=== PATIENT | female | born 1965 | race Caucasian/White ===

== ENCOUNTER → 2017-02-12 | Outpatient (CLI) | payer OTHER ==
--- NOTE | 2017-02-12 13:33 | MAMMOGRAPHY REPORT ---
BILATERAL DIGITAL SCREENING MAMMOGRAM TOMOSYNTHESIS WITH CAD: 02/12/2017 TECHNIQUE: Breast tomosynthesis in addition to standard 2D mammography was performed. Current study was also evaluated with a Computer Aided Detection (CAD) system. COMPARISON: Comparison is made to exams dated: 01/27/2016 mammogram, 04/10/2014 mammogram, 09/05/2010 mammogram - [facility], 08/03/2008, and 01/09/2013 ultrasound - [facility]. BREAST COMPOSITION: The tissue of both breasts is almost entirely fatty. FINDINGS: No suspicious masses, calcifications, or areas of architectural distortion are noted in e ither breast. There has been no significant interval change compared to prior exams. There are nume yanira round circumscribed fat density masses seen within the right medial breast anteriorly, consiste nt with benign oil cysts from fat necrosis. IMPRESSION: ACR BI-RADS CATEGORY 2: BENIGN There is no mammographic evidence of malignancy. A 1 year screening mammogram is recommended. The p atient will receive written notification of the results. Approximately 10% of breast cancers are not detected with mammography. A negative mammographic repor t should not delay biopsy if a clinically suggestive mass is present. Janeth Castle M.D. ah/:02/12/2017 13:16:49 [employer]: Vera ROMO)(Rayna), [facility] letter sent: Normal 1/2 BI-RADS Code: ACR BI-RADS Category 2: Benign
== END | disposition home or self-care (01) ==
LOC: C.MAMM 10:45
PROVIDERS: ATTEND Physician Assistant
DX: Z12.31 Encounter for screening mammogram for malignant neoplasm of breast (principal)

== ENCOUNTER 2024-04-17 06:00 | Observation (INO) ==
--- OUTSIDE RECORDS SUMMARY | 2024-04-17 06:05 | External Medical Summary | Summary of Care ---
Author Name Unknown Organization [facility] Address [address] [place] [address] Phone [phone] Care Team Providers Care Control Systems Drafting Officer Name Role Phone Bobby Cannon MD Primary Care Provider [phone] Encounter Details Date Type Department Care Team (Late st Contact Info) Description 03/21/2024 Orders Only [facility] [address] [place] [address] Marisol Moreno PA-C [address] [place] [address] Allergies Active Allergy Reactions Criticality Noted Date Comments Penicillins 01/23/1999 hives Sulfa Antibiotics Unknown 01/23/1999 documented as of this encounter (statuses as of 03/21/2024) Medications No known medicationsdocumented as of this encounter (statuses as of 03/21/2024) Active Problems Problem Noted Date Diagnosed Date Wrist tendonitis 08/20/2021 Flexor carpi radialis tenosynovitis 08/20/2021 Body mass index (BMI) of 40.0 to 44.9 in adult 0 01/04/2018 Overview: Per Obesity protocol #1 Panic disorder 03/02/2007 Major depressive disorder, recurrent episode, mo derate 03/02/2007 Urinary frequency 03/02/2007 FM [id number] DIS NEC 11/24/2000 History of tobacco use Family hx-breast malignancy documented as of this encounter (statuses as of 03/21/2024) Resolved Problems Problem Noted Date Diagnosed Date Resolved Date Malaise and fatigue 03/02/2007 05/01/20 19 MEDIAL EPICONDYLITIS, LEFT 03/02/2007 0 05/01/2019 ADVANCE DIRECTIVE INFORMATION 01/15/2006 05/01/2019 Overview: No, Advance Directive brochure given to patient. documented as of this encounter (statuses as of 03/21/2024) Immunizations Name Administration Dates Next Due COVID-19 mRNA, LNP-s, No Pre serve, 2-Dose Series (Pfizer) 01/16/2021,12/26/2020 PPD 02/08/2017,01/27/2017 Seasonal Influenza, PF, 6 M & above, IM , (FluLaval or Fluzone) 08/23/2021,10/06/2019,11/30/2017 Seasonal Influenza, Split, I IV3, With Preserve, Inj 09/27/2012,09/11/2008,09/16/2007 TDAP (age 10 and older)(Boostrix) 10/19/2015 documented as of this encounter Social History Tobacco Use Types Packs/Day Years Used Date Smoking Tobacco: Former Cigarettes 1.5 10 0 01/13/2002 - 01/13/2012 Smokeless Tobacco: Never Alcohol Use Standard Drinks/Week Comments Yes 0 (1 standard drink = 0.6 oz pur e alcohol) 8 drinks daily Sex and Gender Information Value Date Recorded Sex Assigned at Female 01/01/2020 12:36 PM EST Gender Identity Female 01/01/2020 12:36 PM EST Sexual Orientation Straight 01/01/2020 12 :36 PM EST Job Start Date Occupation Industry Not on file Not on file Not on file documented as of this encounter Plan of Treatment Scheduled Procedures Name Priority Associated Diagnoses Date/Ti me COLONOSCOPY FLEXIBLE PROXIMA L DIAGNOSTIC Recall Positive colorectal cancer screening using Cologuard test Health Maintenance Due Date Last Done Comments HIV Screening 1981 Hepatitis C Screening 1984 Hepatitis B (1 of 3 - 19+ 3-dose series) 1985 HPV/Co-Test 1996 Fecal Occult Blood Test 2011 Sigmoidoscopy 2011 Zoster Vaccines (1 of 2) 2016 Lipid Panel 02/08/2022 02/08/2017, 06/22, 06/24/2007 Diabetes Screening 01/01/2023 01/01/2020, 0 07/03/2009, 06/24/2007, Additional history exists COVID-19 Vaccine ( season) 2023 01/16/2021, 12/26/2020 Mammogram 01/01/2024 03/20/2024, 12/23, 12/30/2021, Additional history exists Influenza Vaccine (FLU shot) (Season Ended) 2024 08/23/2021, 10/06/2019, 11/30/2017, Additional history exists Cologuard 06/30/2025 06/30/2022, 12/2021, 06/23/2022, Additional history exists Cervical Cancer Screening 07/10/2025 Pap Smear 07/10/2025 07/10/2022, 04/22, 05/01/2019, Additional history exists DTaP,Tdap,and Td Vaccines (7 - Td or Tdap) 10/19/2025 10/19/2015, 11/24/2000, 05/01/1971, Additional history exists Colonoscopy 11/09/2027 11/09/2022, 11/09/2022 Colorectal Cancer Screening 11/09/2027 RETIRED - COLONOSCOPY-EVERY 5 YRS AGES 18-100 Discontinued 11/09/2022, 11/09/2022 GARDASIL-HPV IMMUNIZATION SERIES Aged Out No longer eligible based on patient's age to complete this topic MENINGOCOCCAL (MENACTRA/MENVEO) Aged Out No longer eligible based on patient's age to complete this topic Pneumococcal Vaccine: Pediatrics (0 to 5 Years) and At-Risk Patients (6 to 64 Years) Aged Out No longer eligible based on patient's age to complete this topic documented as of this encounter Medical Devices Not on filedocumented as of this encounter Procedures Procedure Name Priority Date/Time Associated Diagnosis Comments MAMMOGRAM SCREENING BILATERAL Routine 03/20/2024 documented in this encounter Results * MAMMOGRAM SCREENING BILATERAL (03/20/2024) Anatomical Region Laterality Modality Breast Bilateral Other 03/20/2024 Marisol Moreno PA-C RAD MAMMOGRAPHY documented in this encounter Care Teams Control Systems Drafting Officer Relationship Specialty Start Date End Date Bobby Cannon MD [address] [facility] [place] [id number] PCP - General Family Medicine 10/06/19 documented as of this encounter
[2024-04-17 06:32] LABS: Basophils # (auto) 0.05 K/uL (0.00-0.20); Basophils % (auto) 0.5 %; Eosinophils # (auto) 0.23 K/uL (0.00-0.50); Eosinophils % (auto) 2.3 %; Hematocrit (blood only) 46.7 % (37.0-47.0); Hemoglobin 15.7 g/dl (12.0-16.0); Immature Granulocytes # (auto) 0.05 K/uL (0.01-0.20); Immature Granulocytes % (auto) 0.5 %; Lymphocytes # (auto) 1.57 K/uL (1.20-3.40); Lymphocytes % (auto) 15.9 %; Mean Corpuscular Hemoglobin 29.7 pg (25.0-34.0); Mean Corpuscular Hgb Conc 33.6 g/dL (32.0-36.0); Mean Corpuscular Volume 88.4 fL (80.0-100.0); Mean Platelet Volume 11.2 fL (9.4-12.4); Monocytes # (auto) 0.72 K/uL (0.11-0.59); Monocytes % (auto) 7.3 %; Neutrophils # (auto) 7.23 K/uL (1.40-6.50); Neutrophils % (auto) 73.5 %; Platelet Count 287 K/uL (130-400); RDW Standard Deviation 42.4 fL (36.4-46.3); Red Blood Count 5.28 M/uL (4.20-5.40); White Blood Count 9.85 K/ul (4.8-10.8)
--- NOTE | 2024-04-17 06:59 | Electrocardiogram Report ---
Test Reason : Blood Pressure : / mmHG Vent. Rate : 111 BPM Atrial Rate : 111 BPM P-R Int : 142 ms QRS Dur : 072 ms QT Int : 350 ms P-R-T Axes : 065 064 044 degrees QTc Int : 476 ms Sinus tachycardia Otherwise normal ECG When compared with ECG of 06-SEP-2019 09:38, No significant change was found Confirmed by Rikki Maldonado ([id number]) on 04/17/2024 6:59:26 AM Referred By: Confirmed By:Fracisco Maldonado
[2024-04-17 07:04] LABS: Albumin Globulin Ratio 1.4 (0.9-2); Albumin Level 4.3 gm/dl (3.4-5.0); BUN Creatinine Ratio 13.3 (10-20); Bilirubin,Total 2.8 mg/dl (0.2-1.0); Calcium 9.1 mg/dl (8.6-10.3); Creatinine Clr Calc Pharmacy 99.9 ml/min; Est GFR (African American) 101.8 ml/min; Est GFR (Non-African American) 87.9 ml/min; Globulin 3.1 gm/dl (2.5-4.0); Potassium 4.1 mmol/L (3.5-5.1); Total Protein 7.4 gm/dl (6.0-8.3)
[2024-04-17 07:10] LABS: Troponin I High Sensitivity 4.7 pg/ml (0-14)
[2024-04-17 07:26] LABS: D Dimer 450 ug/L FEU (0-500); Partial Thromboplastin Ratio 0.9; Partial Thromboplastin Time 24 Seconds (21-31); Prothrombin Time 10.8 Seconds (9.0-12.0)
[2024-04-17] MEDS: OPTIRAY 320 100ml IV ONE (07:33)
--- NOTE | 2024-04-17 07:52 | Emergency Department Note ---
Impression & Plan Acute cholecystitis, Elevated LFTs ED Provider Note NAME: HERON GOOD AGE: 59 SEX: F : 1965 ARRIVES VIA: Walk-In INFORMANT: Patient, ED PROVIDER(S): Osman Faria MD CHIEF COMPLAINT: Chest pain HPI: This is a 59-year-old presenting for sharp chest pain. Patient points to her epigastrium and pointing to pain. States this began around 4 PM yesterday. She notes that since this time the pain is only worsened. She notes pain with inspiration, nausea without vomiting. She notes she went to the bathroom which did not improve her symptoms. She otherwise notes pain is very severe at this time and she having difficulty due to this. Never happened before. Still has all of her abdominal organs. ROS: See above HPI for pertinent positives & negatives. A total of 10 systems reviewed and were otherwise negative. PHYSICAL EXAMINATION: General: resting comfortably in no acute distress Head: Normocephalic and atraumatic Eyes: Normal inspection, extraocular muscles intact Ear, nose, throat: Normal external exam Neck: Normal range of motion Respiratory: lungs clear to auscultation bilaterally Cardiovascular: Regular rate/rhythm, no murmur GI: Epigastric and right upper quadrant tenderness, positive Cabrera, involuntary guarding, no rebound Extremities: nontender, moves all extremities Neuro: The patient awake and alert, appropriately conversive, no focal deficits, symmetric faces Skin: Warm, dry, and intact MEDICAL DECISION MAKING: This is a 59-year-old female presenting for chest pain. Patient's pain is actually more epigastrium/right upper quadrant. Concern for pancreatitis, cholecystitis, SBO, diverticulitis, ACS, PE. -Blood work was ordered to help rule out a different etiology -Blood work reveals a transaminitis with slight bilirubin elevation. In light of patient's tenderness on physical exam, concern for cholecystitis at this time she has no elevated lipase making pancreatitis lower concern at this time. -Otherwise patient's troponin is negative as well as D-dimer making ACS and PE unlikely in the setting of patient's current EKG as below -CT reveals cholelithiasis with mild gallbladder distention. At this time cannot rule out acute cholecystitis clinically. Discussed with Dr. Saenz, general surgery who recommends inpatient admission for MRCP based on criteria. -After discussion with Dr. Olivares, hospitalist, he wishes to have MRCP performed in the emergency department prior to admission. If MRCP is positive, would recommend transfer. -MRCP does not reveal CBD dilation or stone. Patient now stable for admission to hospitalist service. Differential diagnosis: See above, ER treatment provided: See below Diagnostics interpreted by me: ECG: ECG independently interpreted by me with sinus tachycardia, rate of 111, normal axis, normal TX, normal QRS, normal QTc, no ST segment elevations consistent with STEMI criteria Cardiac Monitoring: An order was placed for continuous cardiac monitoring. The monitor shows a rate of 102 with sinus rhythm. Laboratory studies: As stated above and show below. Imaging studies: See below. Past Med/Surg History Problem List (Updated 04/17/24 @ 14:59 by Osman Faria MD) Acute cholecystitis (Acute) Elevated LFTs (Acute) Social History Smoking Status: Former smoker Second Hand Exposure: No; Do You Dip or Chew Tobacco: No; Tobacco Cessation Education Requested by Patient: No Hx Alcohol Use: Yes Alcohol type: beer Hx Substance Use: No Preferred Language: Polish Qa Lead Required: No Beliefs That Will Affect Care: None Current Living Situation: Family Other Information That Helps Us Care for You: No Feels Safe at Home: Yes Safety Concerns: Feels Safe At This Time Assistive Devices: Glasses Allergies Allergies Allergy/AdvReac Type Severity Reaction Status Date / Time Penicillins Allergy Unknown Unverified 12/27/09 04:41 Sulfa (Sulfonamide Allergy Unknown Unverified 12/27/09 04:41 Antibiotics) sulfamethoxazole Allergy Unknown Unverified 12/27/09 04:41 trimethoprim Allergy Unknown Unverified 12/27/09 04:41 PCN, BACTRIM Allergy Unknown Uncoded 01/15/05 07:37 Home Meds Home Medications Medication Instructions Recorded Confirmed No Known Home Medications 04/17/24 04/17/24 Results & Data (ED) Vital Signs Vital Signs - 24 hr 04/17/24 06:04 04/17/24 06:09 04/17/24 06:12 Temperature 36.6 C Temperature Source Oral Pulse Rate 114 H 106 H Pulse Rate [Left Finger] Pulse Rhythm Regular Pulse Rhythm [Left Finger] Pulse Strength [Left Finger] Respiratory Rate 20 16 Respiratory Effort / Characteristics Respiratory Depth Respiratory Pattern Blood Pressure [Right Arm] 185/105 H Blood Pressure Mean [Right Arm] 131 Blood Pressure Position [Right Arm] Pulse Oximetry 95 96 Oxygen Delivery Method Room Air Room Air Sepsis Recent Fever Within 48 Hours No Sepsis New/Unexplained Change in Mental Status No Sepsis Action Taken by Nursing No Action Required 04/17/24 06:34 04/17/24 08:03 04/17/24 09:00 Temperature Temperature Source Pulse Rate 100 H Pulse Rate [Left Finger] 85 79 Pulse Rhythm Pulse Rhythm [Left Finger] Regular Pulse Strength [Left Finger] Normal Respiratory Rate 24 20 Respiratory Effort / Characteristics Non-Labored Spontaneous Respiratory Depth Normal Respiratory Pattern Regular Blood Pressure [Right Arm] 191/111 H 167/67 H Blood Pressure Mean [Right Arm] 137 100 Blood Pressure Position [Right Arm] Sitting Pulse Oximetry 96 98 Oxygen Delivery Method Sepsis Recent Fever Within 48 Hours Sepsis New/Unexplained Change in Mental Status Sepsis Action Taken by Nursing 04/17/24 10:20 Temperature Temperature Source Pulse Rate Pulse Rate [Left Finger] 77 Pulse Rhythm Pulse Rhythm [Left Finger] Pulse Strength [Left Finger] Respiratory Rate 18 Respiratory Effort / Characteristics Respiratory Depth Respiratory Pattern Blood Pressure [Right Arm] 154/85 H Blood Pressure Mean [Right Arm] 108 Blood Pressure Position [Right Arm] Pulse Oximetry 98 Oxygen Delivery Method Sepsis Recent Fever Within 48 Hours Sepsis New/Unexplained Change in Mental Status Sepsis Action Taken by Nursing Laboratory Data 04/17/24 06:13 04/17/24 06:13 Lab Results 04/17/24 04/17/24 Range/Units 06:13 07:41 WBC 9.85 (4.8-10.8) K/ul RBC 5.28 (4.20-5.40) M/uL Hgb 15.7 (12.0-16.0) g/dl Hct 46.7 (37.0-47.0) % MCV 88.4 (80.0-100.0) fL MCH 29.7 (25.0-34.0) pg MCHC 33.6 (32.0-36.0) g/dL RDW Std Deviation 42.4 (36.4-46.3) fL RDW Coeff of Melva 13.0 (11.5-14.5) % Plt Count 287 (130-400) K/uL MPV 11.2 (9.4-12.4) fL Immature Gran % (Auto) 0.5 % Neut % (Auto) 73.5 % Lymph % (Auto) 15.9 % Swift % (Auto) 7.3 % Eos % (Auto) 2.3 % Baso % (Auto) 0.5 % Neut # (Auto) 7.23 H (1.40-6.50) K/uL Lymph # (Auto) 1.57 (1.20-3.40) K/uL Swift # (Auto) 0.72 H (0.11-0.59) K/uL Eos # (Auto) 0.23 (0.00-0.50) K/uL Baso # (Auto) 0.05 (0.00-0.20) K/uL Immature Gran # (Auto) 0.05 (0.01-0.20) K/uL PT 10.8 (9.0-12.0) Seconds INR 1.0 (0.9-1.1) APTT 24 (21-31) Seconds PTT Ratio 0.9 D-Dimer 450 (0-500) ug/L FEU Sodium 140 (136-145) mmol/L Potassium 4.1 (3.5-5.1) mmol/L Chloride 106 (98-107) mmol/L Carbon Dioxide 24 (21-32) mmol/L Anion Gap 10 (3-11) BUN 10 (6-23) mg/dl Creatinine 0.75 (0.6-1.2) mg/dl Est Cr Clr Drug Dosing 99.9 ml/min Est GFR ( Amer) 101.8 ml/min Est GFR (Non-Af Amer) 87.9 ml/min BUN/Creatinine Ratio 13.3 (10-20) Glucose 147 H (70-99(Fasting)) mg/dl Calcium 9.1 (8.6-10.3) mg/dl Total Bilirubin 2.8 H (0.2-1.0) mg/dl AST 406 H (13-39) U/L ALT 197 H (7-52) U/L Alkaline Phosphatase 148 H (34-104) U/L Troponin I High Sens 4.7 (0-14) pg/ml Total Protein 7.4 (6.0-8.3) gm/dl Albumin 4.3 (3.4-5.0) gm/dl Globulin 3.1 (2.5-4.0) gm/dl Albumin/Globulin Ratio 1.4 (0.9-2) Lipase 30 (11-82) U/L Urine Color Dark Yellow Urine Appearance Clear (Clear) Urine pH 7.5 (4.5-7.5) Ur Specific [place] 1.023 (1.000-1.030) Urine Protein Trace H (Negative) Urine Glucose (UA) Negative (Negative) Urine Ketones Negative (Negative) Urine Blood Negative (Negative) Urine Nitrite Negative (Negative) Urine Bilirubin Negative (Negative) Urine Urobilinogen Negative (Negative) Ur Leukocyte Esterase Negative (Negative) Urine WBC (Auto) 0-5 (0-5) /hpf Urine RBC (Auto) 0-2 (0-2) /hpf U Hyaline Cast (Auto) 0-2 (0-2) /lpf U Epithel Cells (Auto) 0-2 (0-2) /hpf Urine Bacteria (Auto) None Seen (None Seen) Administered Medications Lactated Ringer's (Lr) 1,000 mls @ 80 mls/hr IV .[id number] JUANA Stop: 05/17/24 13:17 Last Admin: 04/17/24 14:01 Dose: 80 mls/hr Documented By: [facility] Discontinued Medications Ceftriaxone Sodium (Rocephin) 2,000 mg in 50 mls @ 100 mls/hr IV Q24H [facility] Stop: 04/19/24 07:59 Last Infusion: 04/17/24 08:33 Dose: Infused Documented By: Admin: 04/17/24 08:03 Dose: 100 mls/hr Documented By: GURWINDER Metronidazole (Flagyl) 500 mg in 100 mls @ 100 mls/hr IV NOW STA; Protocol Stop: 04/17/24 08:48 Last Infusion: 04/17/24 09:28 Dose: Infused Documented By: Admin: 04/17/24 08:28 Dose: 100 mls/hr Documented By: GURWINDER Sodium Chloride (Nss) 1,000 mls @ 999 mls/hr IV .Q1H1M ONE Stop: 04/17/24 09:03 Last Infusion: 04/17/24 09:30 Dose: Infused Documented By: Admin: 04/17/24 08:29 Dose: 999 mls/hr Documented By: GURWINDER Ioversol (Optiray 320 100ml) 92 ml IV ONCE ONE Stop: 04/17/24 07:34 Last Admin: 04/17/24 07:33 Dose: 92 ml Documented By: JACLYN Ketorolac Tromethamine (Ketorolac Tromethamine 15 Mg/Ml Vial) 15 mg IV NOW ONE Stop: 04/17/24 07:48 Last Admin: 04/17/24 08:03 Dose: 15 mg Documented By: GURWINDER Lorazepam (Lorazepam 1 Mg Tab) 1 mg PO NOW STA Stop: 04/17/24 08:56 Last Admin: 04/17/24 09:53 Dose: Not Given Documented By: GURWINDER Lorazepam (Lorazepam 1 Mg/1 Ml Syr Ed Inj Use) 0.5 mg IV ONE STA Stop: 04/17/24 08:57 Last Admin: 04/17/24 10:08 Dose: 0.5 mg Documented By: GURWINDER Imaging Data Radiologist's Impression: Chest X-Ray 04/17/24 06:04 XR chest 1V portable CLINICAL HISTORY: Chest pain, nonspecific COMPARISON STUDY: No previous studies for comparison. FINDINGS: Lung volumes are normal. Lungs are clear. There is no pneumothorax or pleural effusion. Cardiac size is normal. Mediastinal contours are normal. There is no evidence for pulmonary edema. IMPRESSION: No acute cardiopulmonary findings. ACT 112: Negative or not required by law. Electronically signed by: Zak Barfield M.D. 04/17/2024 7:49 AM Abdomen/Pelvis CT 04/17/24 07:19 CT OF THE ABDOMEN AND PELVIS WITH CONTRAST CLINICAL HISTORY: RUQ, epigastric pain, ?enmanuel COMPARISON STUDY: None. TECHNIQUE: Following IV administration of 92 mL of Optiray, axial images of the abdomen and pelvis were obtained from the lung bases to the proximal femurs. Images were reviewed in the axial, sagittal, and coronal planes. IV contrast was administered without complication. Automated exposure control was utilized for the study. A dose lowering technique was utilized adhering to the principles of ALARA. CT DOSE: 1366.34 mGy.cm FINDINGS: Lung bases are unremarkable. No pneumatosis, free air or portal venous gas is present. There is hepatic steatosis. There are no hepatic lesions. There is no biliary or pancreatic ductal dilatation. A gallstone within the gallbladder is present. The gallbladder is mildly distended. There is mild gallbladder wall thickening. Trace stranding within the ponce hepatis is present. Spleen, adrenal glands, kidneys and pancreas are unremarkable. There is no hydronephrosis. The appendix is normal. Caliber and wall thickness of small and large bowel are normal. There is sigmoid diverticulosis without evidence for acute diverticulitis. Major vasculature is patent. IMPRESSION: 1. Cholelithiasis with mild gallbladder distention, gallbladder wall thickening and trace stranding within the ponce hepatis. Acute cholecystitis cannot be excluded. 2. Normal appendix. No bowel obstruction. No bowel wall thickening. 3. Sigmoid diverticulosis without evidence for acute diverticulitis. 4. Hepatic steatosis. ACT 112: Negative or not required by law. Electronically signed by: Zak Barfield M.D. 04/17/2024 8:00 AM Cholangiopancreatography MRI 04/17/24 08:28 MRCP CLINICAL HISTORY: Abdominal pain and nausea. TECHNIQUE: Utilizing a 1.5 Leonela magnet and dedicated coil, multiplanar, multiecho imaging of the upper abdomen was performed utilizing heavily T2 weighted pulsing sequences without IV contrast. COMPARISON STUDY: CT of the abdomen and pelvis performed earlier today. FINDINGS: No intra or extrahepatic biliary ductal dilatation is present. The common bile duct measures 5 m in caliber. No common bile duct calculi are identified. No hepatic lesions are identified on unenhanced exam. 2.1 cm gallstone within the gallbladder is present. There is mild gallbladder wall thickening. Slight thickening of the gallbladder fundus with small T2 hyperintense foci may reflect adenomyomatosis. There is no pancreatic ductal dilatation. Spleen, adrenal glands, kidneys and pancreas are unremarkable on unenhanced exam. Caliber and wall thickness of visualized small and large bowel are normal. There are no fluid collections within the abdomen. IMPRESSION: 1. No biliary ductal dilatation. No common bile duct calculi identified. 2. Cholelithiasis with mild gallbladder wall thickening. The findings could reflect chronic or acute cholecystitis. Nuclear medicine hepatobiliary scan could be obtained as indicated. ACT 112: Negative or not required by law. Electronically signed by: Zak Barfield M.D. 04/17/2024 11:08 AM Discharge Plan Visit Data Chief Complaint: Chest Pain Stated Complaint: CHEST PAIN, PAIN ACROSS BACK ED Provider: Osman Faria Discharge Problem: Acute cholecystitis, Elevated LFTs Patient Disposition: Admitted As Inpatient Discharge Instructions Interventions: ED Discharge Assessment Last Done: 04/17/24 13:00
--- NOTE | 2024-04-17 08:02 | CT Scan Report ---
CT OF THE ABDOMEN AND PELVIS WITH CONTRAST CLINICAL HISTORY: RUQ, epigastric pain, ?enmanuel COMPARISON STUDY: None. TECHNIQUE: Following IV administration of 92 mL of Optiray, axial images of the abdomen and pelvis we re obtained from the lung bases to the proximal femurs. Images were reviewed in the axial, sagittal, and coronal planes. IV contrast was administered without complication. Automated exposure control wa s utilized for the study. A dose lowering technique was utilized adhering to the principles of ALARA . CT DOSE: 1366.34 mGy.cm FINDINGS: Lung bases are unremarkable. No pneumatosis, free air or portal venous gas is present. Ther e is hepatic steatosis. There are no hepatic lesions. There is no biliary or pancreatic ductal dilata tion. A gallstone within the gallbladder is present. The gallbladder is mildly distended. There is mi ld gallbladder wall thickening. Trace stranding within the ponce hepatis is present. Spleen, adrenal glands, kidneys and pancreas are unremarkable. There is no hydronephrosis. The appendix is normal. Ca liber and wall thickness of small and large bowel are normal. There is sigmoid diverticulosis without evidence for acute diverticulitis. Major vasculature is patent. IMPRESSION: 1. Cholelithiasis with mild gallbladder distention, gallbladder wall thickening and trace stranding w ithin the ponce hepatis. Acute cholecystitis cannot be excluded. 2. Normal appendix. No bowel obstruction. No bowel wall thickening. 3. Sigmoid diverticulosis without evidence for acute diverticulitis. 4. Hepatic steatosis. ACT 112: Negative or not required by law. Electronically signed by: Zak Barfield M.D. 04/17/2024 8:00 AM
[2024-04-17 08:03] LABS: Appearance Urine Clear (Clear); Bacteria Urine Automated None Seen (None Seen); Bilirubin Urine Negative (Negative); Blood Urine Negative (Negative); Cast Urine Automated 0-2 /lpf (0-2); Color Urine Dark Yellow; Epithelial Cell Urine Auto 0-2 /hpf (0-2); Glucose Urine UA Negative (Negative); Ketones Urine Negative (Negative); Leukocyte Esterase Urine Negative (Negative); Nitrite Urine Negative (Negative); Protein Urine Trace (Negative); RBC Urine Automated 0-2 /hpf (0-2); Specific Gravity Urine 1.023 (1.000-1.030); Urobilinogen Urine Negative (Negative); WBC Urine Automated 0-5 /hpf (0-5); pH Urine 7.5 (4.5-7.5)
[2024-04-17] MEDS: cefTRIAXone SODIUM 2,000 MG/50 ML BAG IV SCH (08:03)
[2024-04-17] MEDS: KETOROLAC TROMETHAMINE 15 MG/ML VIAL IV ONE (08:03)
[2024-04-17] MEDS: metroNIDAZOLE 500 MG/100 ML BAG IV STA (08:28)
[2024-04-17] MEDS: SODIUM CHLORIDE 0.9% 1,000 ML IV ONE (08:29)
--- NOTE | 2024-04-17 08:55 | Surgery Consultation ---
Date of Consultation April 17, 2024 Assessment & Plan (1) Elevated LFTs: Patient is a pleasant 59 yo female with c/o epigastric pain that started yesterday around 4-5pm and got progressively worse around 0500 this AM which prompted to her go to the ER. She reports mild nausea while brushing her teeth, no vomiting, had similar pain a few years ago that subsided and she did seek treatment. On exam she is NAD, abdomen soft TTP RUQ, elevated BP otherwise VSS. CT scan reading Cholelithiasis/gallbladder distention, gallbladder wall thickening and trace stranding within the ponce hepatis, WBC wnl but her T. bili is 2.8, AST 406, ALT 197, Alk. phos. 148. Ordered a MRCP to r/o CBD obstruction given elevation in LFTs. Keep NPO , admit to medicine, if MRCP shows dilation or obstruction in question patient will transferred to a facility that has ERCP available. (2) Acute cholecystitis: Supervising Physician Co-Signing Physician Notes cholelithiasis w/ cholecystitis, suspicion of choledocholithiasis. MRCP negative, though still suspicious. admitted to medicine can have clears, npo after midnight repeat lfts, if increased may still need ercp vs cholangiogram tentatively plan for robotic assisted laparoscopic cholecystectomy with possible cholangiogram tomorrow in OR risks discussed to include but not limited to bleeding, infection, retained stone, bile leak, open surgery, damage to surrounding structures including bile duct, need for future or more extensive surgery, failure to treat symptoms, and risks of anesthesia. History of Present Illness Reason for Consultation: acute cholecystitis , elevated LFT Requesting Physician: Dr. Faria History of Present Illness Patient is a pleasant 59 yo female with no SPMH, that presented to the [facility] ER with c/o epigastric pain that started yesterday around 4-5pm and got progressively worse around 0500 this AM which prompted to her go to the ER. She reports mild nausea while brushing her teeth, no vomiting, had similar pain a few years ago that subsided and she did seek treatment. She denies prior ab dominal surgery and reports no medication. Patient does state she has been told prior that her blood pressure was elevated during routine yearly physicals, but reports it has not been elevated at her PCP appointments. Allergies Allergy/AdvReac Type Severity Reaction Status Date / Time Penicillins Allergy Unknown Unverified 12/27/09 04:41 Sulfa (Sulfonamide Allergy Unknown Unverified 12/27/09 04:41 Antibiotics) sulfamethoxazole Allergy Unknown Unverified 12/27/09 04:41 trimethoprim Allergy Unknown Unverified 12/27/09 04:41 PCN, BACTRIM Allergy Unknown Uncoded 01/15/05 07:37 Home Medications Medication Instructions Recorded Confirmed Type No Known Home Medications 04/17/24 04/17/24 History Patient History Social History Smoking Status: Never smoker Preferred Language: Setswana Feels Safe at Home: Yes Review of Systems Constitutional: no fever and no chills Respiratory: no dyspnea Gastrointestinal: + abdominal pain, + heartburn and + naus ea; no vomiting Musculoskeletal: no muscle weakness Physical Exam Constitutional: + obese, cooperative and comfortable; no acute distress Respiratory: normal respiratory effort and able to speak in complete sen tences; no respiratory distress Cardiovascular: Rate/Rhythm: regular rate Gastrointestinal (Abdomen): Percussion/Palpation: + abdomen tender (RUQ ) and abdomen soft Results & Data Vital Signs (Past 12 Hours) Vital Signs Temp Pulse Pulse Resp BP Pulse Ox O2 Del Method 04/17/24 08:03 85 24 191/111 H 96 04/17/24 06:34 100 H 04/17/24 06:12 106 H 16 96 Room Air 04/17/24 06:09 185/105 H 04/17/24 06:04 97.9 F 114 H 20 95 Room Air Diagnostic Findings [place], [place] [phone] CT Scan Report Patient: HERON GOOD Admit Date: 04/17/24 MR#: [id number] Address1: [address] [place] [address] Acct ID:[id number] Address2: Date: 1965 [facility] Zip: [place] [address] Age: 59 Location: ED Sex: F Room/Bed: Att Phy: Diagnosis: CHEST PAIN, PAIN ACROSS BACK Idalmis Phy: Marisol Moreno PA-C Service Date: 04/17/24 Fam Phy: Interpreting Phy: Zak Barfield MDAdmit Phy: Ordering Phy: Osman Faria MD cc: ~ CT OF THE ABDOMEN AND PELVIS WITH CONTRAST CLINICAL HISTORY: RUQ, epigastric pain, ?enmanuel COMPARISON STUDY: None. TECHNIQUE: Following IV administration of 92 mL of Optiray, axial images of the abdomen and pelvis were obtained from the lung bases to the proximal femurs. Images were reviewed in the axial, sagittal, and coronal planes. IV contrast was administered without complication. Automated exposure control was utilized for the study. A dose lowering technique was utilized adhering to the principles of ALARA. CT DOSE: 1366.34 mGy.cm FINDINGS: Lung bases are unremarkable. No pneumatosis, free air or portal venous gas is present. There is hepatic steatosis. There are no hepatic lesions. There is no biliary or pancreatic ductal dilatation. A gallstone within the gallbladder is present. The gallbladder is mildly distended. There is mild gallbladder wall thickening. Trace stranding within the ponce hepatis is present. Spleen, adrenal glands, kidneys and pancreas are unremarkable. There is no hydronephrosis. The appendix is normal. Caliber and wall thickness of small and large bowel are normal. There is sigmoid diverticulosis without evidence for acute diverticulitis. Major vasculature is patent. IMPRESSION: 1. Cholelithiasis with mild gallbladder distention, gallbladder wall thickening and trace stranding within the ponce hepatis. Acute cholecystitis cannot be excluded. 2. Normal appendix. No bowel obstruction. No bowel wall thickening. 3. Sigmoid diverticulosis without evidence for acute diverticulitis. 4. Hepatic steatosis. ACT 112: Negative or not required by law. Electronically signed by: Zak Barfield M.D. 04/17/2024 8:00 AM Dictated: 04/17/24 0754 Transcribed: 04/17/24 0754 Results CMP Results: Na 140 mmol/L (136-145) 04/17/24 K 4.1 mmol/L (3.5-5.1) 04/17/24 Cl 106 mmol/L (98-107) 04/17/24 CO2 24 mmol/L (21-32) 04/17/24 Anion Gap 10 (3-11) 04/17/24 BUN 10 mg/dl (6-23) 04/17/24 Creatinine 0.75 mg/dl (0.6-1.2) 04/17/24 Estimated GFR ( Amer) 101.8 ml/min 04/17/24 Estimated GFR (Non-Af Amer) 87.9 ml/min 04/17/24 BUN/Creatinine Ratio 13.3 (10-20) 04/17/24 Glu 147 mg/dl (70-99(Fasting)) H 04/17/24 Ca 9.1 mg/dl (8.6-10.3) 04/17/24 Total Bilirubin 2.8 mg/dl (0.2-1.0) H 04/17/24 AST 406 U/L (13-39) H 04/17/24 ALT 197 U/L (7-52) H 04/17/24 Alkaline Phosphatase 148 U/L (34-104) H 04/17/24 TP 7.4 gm/dl (6.0-8.3) 04/17/24 Albumin 4.3 gm/dl (3.4-5.0) 04/17/24 Globulin 3.1 gm/dl (2.5-4.0) 04/17/24 Albumin/Globulin Ratio 1.4 (0.9-2) 04/17/24 Results Complete Blood Count Results: RBC 5.28 M/uL (4.20-5.40) 04/17/24 WBC 9.85 K/ul (4.8-10.8) 04/17/24 Hgb 15.7 g/dl (12.0-16.0) 04/17/24 Hct 46.7 % (37.0-47.0) 04/17/24 Plt Count 287 K/uL (130-400) 04/17/24 PG Care Time/CCT Total # of Minutes Spent Total Time Spent with Patient: Total time spent is greater than 50% in coordination of care (as documented) at patient's floor/unit and/or counseling patient: Coding Level of Care Code 83482 OFFICE CONSULT LVL Diagnoses Elevated LFTs R79.89 Acute cholecystitis K81.0
[2024-04-17] MEDS: LORazepam 1 MG TAB PO STA (09:53)
[2024-04-17] MEDS: LORazepam 1 MG/1 ML SYR ED Inj Use IV STA (10:08)
--- NOTE | 2024-04-17 11:11 | Magnetic Resonance Report ---
MRCP CLINICAL HISTORY: Abdominal pain and nausea. TECHNIQUE: Utilizing a 1.5 Leonela magnet and dedicated coil, multiplanar, multiecho imaging of the [facility] abdomen was performed utilizing heavily T2 weighted pulsing sequences without IV contrast. COMPARISON STUDY: CT of the abdomen and pelvis performed earlier today. FINDINGS: No intra or extrahepatic biliary ductal dilatation is present. The common bile duct measure s 5 m in caliber. No common bile duct calculi are identified. No hepatic lesions are identified on un enhanced exam. 2.1 cm gallstone within the gallbladder is present. There is mild gallbladder wall thi ckening. Slight thickening of the gallbladder fundus with small T2 hyperintense foci may reflect jyoti omyomatosis. There is no pancreatic ductal dilatation. Spleen, adrenal glands, kidneys and pancreas a re unremarkable on unenhanced exam. Caliber and wall thickness of visualized small and large bowel ar e normal. There are no fluid collections within the abdomen. IMPRESSION: 1. No biliary ductal dilatation. No common bile duct calculi identified. 2. Cholelithiasis with mild gallbladder wall thickening. The findings could reflect chronic or acute cholecystitis. Nuclear medicine hepatobiliary scan could be obtained as indicated. ACT 112: Negative or not required by law. Electronically signed by: Zak Barfield M.D. 04/17/2024 11:08 AM
--- NOTE | 2024-04-17 11:23 | History & Physical Report ---
Date of Service April 17, 2024 Assessment & Plan (1) Acute cholecystitis: (2) Elevated LFTs: Plan Pt is a 59yoF with no significant PMHx presenting with epigastric pain radiating to her back. Acute Cholecystitis Pt presenting with epigastric pain radiating to her back Concerned that she was having a heart attack Trop of 4.7 wnl, EKG with sinus tachycardia CT abd/pelvis noting "Cholelithiasis with mild gallbladder distention, gallbladder wall thickening and trace stranding within the ponce hepatis. Acute cholecystitis cannot be excluded." General surgery consulted, appreciate recs NPO after midnight, IV fluids, pain control, antiemetics Tentative scheduling of cholecystectomy based on liver enzymes Revised cardiac risk index score of 1 point for procedure type, Class II risk, 6.0% 30-day risk of , CO, or cardiac arrest. Continue to monitor Transaminitis T bili of 2.8, AST of 406, ALT of 197, alk phos of 148 MRCP noting no biliary ductal dilatation and no common bile duct calculi identified. Per surgery continue to trend, if still elevated in AM might need still transfer for ERCP Continue to monitor with AM labs Hyperglycemia Glucose levels elevated AM [id number] Diet: clears, NPO after midnight per Gen surg DVT prophylaxis: SCDs in setting of need for surgery Dispo: Med/Surg History of Present Illness Chief Complaint: Epigastric Pain Primary Care Provider: Marisol Moreno PA-C Pt is a 59yoF with no significant PMHx presenting with epigastric pain radiating to her back. She states the pain started about 3pm yesterday and was interm ittent. Then continued to become more persistent and felt like it was in her chest area, so she became concerned that she might be having a heart attack. Presented this morning when the pain became unbearable. Had some nausea but no vomiting. Had not been able to eat. At the time of this interview and exam stated that the pain was resolved and she felt like she could eat. Denied nausea at that time. Denied fevers, chills or night sweats. Notes a family hx of cardiac disease but no personal Hx. Denies a Hx of CVA, CKD, CO or CHF. States her only previous surgery was in her wrist. Allergies Allergy/AdvReac Type Severity Reaction Status Date / Time Penicillins Allergy Unknown Unverified 12/27/09 04:41 Sulfa (Sulfonamide Allergy Unknown Unverified 12/27/09 04:41 Antibiotics) sulfamethoxazole Allergy Unknown Unverified 12/27/09 04:41 trimethoprim Allergy Unknown Unverified 12/27/09 04:41 PCN, BACTRIM Allergy Unknown Uncoded 01/15/05 07:37 Home Medications Medication Instructions Recorded Confirmed Type No Known Home Medications 04/17/24 04/17/24 History Past Med/Surg History Problem List (Updated 04/17/24 @ 08:50 by RUBIN Peterson) Acute cholecystitis Elevated LFTs Social History Smoking Status: Former smoker Second Hand Exposure: No; Do You Dip or Chew Tobacco: No; Tobacco Cessation Education Requested by Patient: No Hx Alcohol Use: Yes Alcohol type: beer Hx Substance Use: No Preferred Language: Slovak Practice Office Associate Required: No Beliefs That Will Affect Care: None Current Living Situation: Family Other Information That Helps Us Care for You: No Feels Safe at Home: Yes Safety Concerns: Feels Safe At This Time Assistive Devices: Glasses Review of Systems Review of Systems: All systems reviewed & are unremarkable except as noted in Subjective Physical Exam Physical Exam: General: Alert, oriented. No acute distress Skin: No noted rashes or bruises Psych: Appropriate mood and affect Neuro: No gross deficits HEENT: NC/AT Chest: Nontender to palpation. CV: RRR Resp: Breath sounds clear bilaterally, no increased effort of breathing. Abdomen: Soft, tender to deep palpation only at the time of my exam Extremities: No edema in lower extremities bilaterally. Results & Data Results & Data Vital Signs (Past 12 Hours) Vital Signs Temp Pulse Pulse Resp BP Pulse Ox O2 Del Method 04/17/24 10:20 77 18 154/85 H 98 04/17/24 09:00 79 20 167/67 H 98 04/17/24 08:03 85 24 191/111 H 96 04/17/24 06:34 100 H 04/17/24 06:12 106 H 16 96 Room Air 04/17/24 06:09 185/105 H 04/17/24 06:04 36.6 C 114 H 20 95 Room Air Diagnostic Findings Chest X-Ray 04/17/24 06:04 XR chest 1V portable CLINICAL HISTORY: Chest pain, nonspecific COMPARISON STUDY: No previous studies for comparison. FINDINGS: Lung volumes are normal. Lungs are clear. There is no pneumothorax or pleural effusion. Cardiac size is normal. Mediastinal contours are normal. There is no evidence for pulmonary edema. IMPRESSION: No acute cardiopulmonary findings. ACT 112: Negative or not required by law. Electronically signed by: Zak Barfield M.D. 04/17/2024 7:49 AM Abdomen/Pelvis CT 04/17/24 07:19 CT OF THE ABDOMEN AND PELVIS WITH CONTRAST CLINICAL HISTORY: RUQ, epigastric pain, ?enmanuel COMPARISON STUDY: None. TECHNIQUE: Following IV administration of 92 mL of Optiray, axial images of the abdomen and pelvis were obtained from the lung bases to the proximal femurs. Images were reviewed in the axial, sagittal, and coronal planes. IV contrast was administered without complication. Automated exposure control was utilized for the study. A dose lowering technique was utilized adhering to the principles of ALARA. CT DOSE: 1366.34 mGy.cm FINDINGS: Lung bases are unremarkable. No pneumatosis, free air or portal venous gas is present. There is hepatic steatosis. There are no hepatic lesions. There is no biliary or pancreatic ductal dilatation. A gallstone within the gallbladder is present. The gallbladder is mildly distended. There is mild gallbladder wall thickening. Trace stranding within the ponce hepatis is present. Spleen, adrenal glands, kidneys and pancreas are unremarkable. There is no hydronephrosis. The appendix is normal. Caliber and wall thickness of small and large bowel are normal. There is sigmoid diverticulosis without evidence for acute diverticulitis. Major vasculature is patent. IMPRESSION: 1. Cholelithiasis with mild gallbladder distention, gallbladder wall thickening and trace stranding within the ponce hepatis. Acute cholecystitis cannot be excluded. 2. Normal appendix. No bowel obstruction. No bowel wall thickening. 3. Sigmoid diverticulosis without evidence for acute diverticulitis. 4. Hepatic steatosis. ACT 112: Negative or not required by law. Electronically signed by: Zak Barfield M.D. 04/17/2024 8:00 AM Cholangiopancreatography MRI 04/17/24 08:28 MRCP CLINICAL HISTORY: Abdominal pain and nausea. TECHNIQUE: Utilizing a 1.5 Leonela magnet and dedicated coil, multiplanar, multiecho imaging of the upper abdomen was performed utilizing heavily T2 weighted pulsing sequences without IV contrast. COMPARISON STUDY: CT of the abdomen and pelvis performed earlier today. FINDINGS: No intra or extrahepatic biliary ductal dilatation is present. The common bile duct measures 5 m in caliber. No common bile duct calculi are identified. No hepatic lesions are identified on unenhanced exam. 2.1 cm gallstone within the gallbladder is present. There is mild gallbladder wall thickening. Slight thickening of the gallbladder fundus with small T2 hyperintense foci may reflect adenomyomatosis. There is no pancreatic ductal dilatation. Spleen, adrenal glands, kidneys and pancreas are unremarkable on unenhanced exam. Caliber and wall thickness of visualized small and large bowel are normal. There are no fluid collections within the abdomen. IMPRESSION: 1. No biliary ductal dilatation. No common bile duct calculi identified. 2. Cholelithiasis with mild gallbladder wall thickening. The findings could reflect chronic or acute cholecystitis. Nuclear medicine hepatobiliary scan could be obtained as indicated. ACT 112: Negative or not required by law. Electronically signed by: Zak Barfield M.D. 04/17/2024 11:08 AM
[2024-04-17] MEDS ORDERED: HYDROmorphone INJ 0.5 MG/0.5 ML SYR IV PRN (13:18)
[2024-04-17] MEDS: LACTATED RINGER'S 1,000 ML IV SCH (14:01)
[2024-04-17] MEDS: ERTAPENEM SODIUM 1,000 MG in SYRINGE 0 ML IV SCH (15:38)
[2024-04-17] MEDS: ONDANSETRON INJ 2 MG/ML 2 ML VIAL IV PRN (16:41)
[2024-04-17] MEDS: ACETAMINOPHEN 1,000 MG/100 ML VIAL IV PRN (19:53)
[2024-04-18 06:51] LABS: Basophils # (auto) 0.04 K/uL (0.00-0.20); Basophils % (auto) 0.6 %; Eosinophils # (auto) 0.32 K/uL (0.00-0.50); Eosinophils % (auto) 4.9 %; Hematocrit (blood only) 40.6 % (37.0-47.0); Hemoglobin 13.3 g/dl (12.0-16.0); Immature Granulocytes # (auto) 0.03 K/uL (0.01-0.20); Immature Granulocytes % (auto) 0.5 %; Lymphocytes % (auto) 22.9 %; Mean Corpuscular Hemoglobin 29.7 pg (25.0-34.0); Mean Corpuscular Hgb Conc 32.8 g/dL (32.0-36.0); Mean Corpuscular Volume 90.6 fL (80.0-100.0); Mean Platelet Volume 11.6 fL (9.4-12.4); Monocytes # (auto) 0.42 K/uL (0.11-0.59); Monocytes % (auto) 6.4 %; Neutrophils # (auto) 4.24 K/uL (1.40-6.50); Neutrophils % (auto) 64.7 %; Platelet Count 237 K/uL (130-400); RDW Coefficient of Variation 13.3 % (11.5-14.5); Red Blood Count 4.48 M/uL (4.20-5.40); White Blood Count 6.55 K/ul (4.8-10.8)
[2024-04-18 07:38] LABS: Albumin Globulin Ratio 1.5 (0.9-2); Albumin Level 3.5 gm/dl (3.4-5.0); BUN Creatinine Ratio 10.3 (10-20); Calcium 8.2 mg/dl (8.6-10.3); Creatinine Clr Calc Pharmacy 108.8 ml/min; Est GFR (African American) 111.8 ml/min; Est GFR (Non-African American) 96.4 ml/min; Globulin 2.4 gm/dl (2.5-4.0); Phosphorus 3.3 mg/dl (2.5-4.9); Total Protein 5.9 gm/dl (6.0-8.3)
[2024-04-18 08:58] LABS: Estimated Average Glucose 117 mg/dl; Hemoglobin A1C 5.7 % (4.5-5.6)
--- NOTE | 2024-04-18 10:14 | Communication Note ---
Date of Service: April 18, 2024 GI was asked to weigh in regarding this patient's elevated LFTs and epigastric pain. Patient has a total bilirubin of 3.0 (up from 04/17/24), AST of 346, ALT of 303. MRCP indicated appropriate bile ducts, but showed cholelithiasis with evidence of cholecystitis. Despite normal bile ducts on imaging, did discuss patient's situation with general surgery given the rising T bili. Recommended that if there is clinical concern for a choledocho based on these labs, would advise transfer to a facility with biliary services (EUS/ERCP). Could consider obtaining general acute hepatitis labs to exclude another source of LFT elevation in the interim, though this would not explain her acute symptoms of epigastric/chest pain. Would continue antibiotic treatment & monitoring LFTs per hospitalist team.
--- NOTE | 2024-04-18 11:03 | Surgery Progress Note ---
Date of Service April 18, 2024 Assessment & Plan (1) Acute cholecystitis: Plan: Pt here w/ RUQ Pain. US showed + cholelithiasis, GB wall distention, and trace stranding and cannot rule out acute enmanuel Today labs show WBC 6.5. LFTs increased to Tb 3, AST 346, ALT 303, ALkP 168 MRCP yest showed no biliary ductal dilation and no evidence of CBD stones on this study Reached out to GI today given LFT elevation. If doubts regarding MRCP recommending send out for ERCP services which we do not provide here Will cancel case for lap enmanuel today given rise in LFTs Recommend sending out hepatitis studies for full workup to rule out other etiologies May start working on trsfer or else remain in house and repeat labs tomorrow. If LFTs downtrend will reconsider lap enmanuel sometime this wk...otherwise trsfer May have diet, keep NPO at midnight pending any upcoming procedures (2) Elevated LFTs: Admission and Anticipated Discharge Date Admission Date: April 17, 2024 Supervising Physician Co-Signing Physician Notes pnt S&E, labs and imaging reviewed, agree with above. admitted with cholecystitis and possible choledocholithiasis. MRCP neg, but tbili up and lfts elevated still. GI consulted, recommended transfer if felt needed eus/ercp. Discussed with medicine, possible transfer, however if repeat labs tomorrow and if downtrending proceed with surgery . Subjective Patient doing okay. Mild abdominal pain. Physical Exam Physical Exam: awake/alert, no distress Respiratory: normal respiratory effort Gastrointestinal (Abdomen): Percussion/Palpation: + abdomen tender (RUQ) and abdomen soft Skin: + jaundice Results & Data Vital Signs (Past 12 Hours) Vital Signs Temp Pulse Resp BP Pulse Ox O2 Del Method 04/18/24 08:07 97.7 F 65 16 139/80 94 Room Air PG Care Time/CCT Total # of Minutes Spent Total Time Spent with Patient: Total time spent is greater than 50% in coordination of care (as documented) at patient's floor/unit and/or counseling patient: Coding Level of Care Code 09139 SUB INP/OBS CARE 1/25MIN Diagnoses Acute cholecystitis K81.0 Elevated LFTs R79.89
--- NOTE | 2024-04-18 14:27 | Hospitalist Progress Note ---
Date of Service April 18, 2024 Assessment & Plan (1) Acute cholecystitis: (2) Elevated LFTs: Plan Pt is a 59yoF with no significant PMHx presenting with epigastric pain radiating to her back. Acute Cholecystitis Pt presenting with epigastric pain radiating to her back Concerned that she was having a heart attack Trop of 4.7 wnl, EKG with sinus tachycardia Revised cardiac risk index score of 1 point for procedure type, Class II risk, 6.0% 30-day risk of , [place], or cardiac arrest. CT abd/pelvis noting "Cholelithiasis with mild gallbladder distention, gallbladder wall thickening and trace stranding within the ponce hepatis. Acute cholecystitis cannot be excluded." General surgery consulted, appreciate recommendations Currently abdominal pain has resolved LFTs still elevated and thus gen. surgery in consultation w/ GI if ercp needed GI ordered hepatitis panel and considering transfer - however did not see the pt Tentative scheduling of cholecystectomy based on liver enzymes NPO after midnight, IV fluids, pain control, antiemetics Per surgery - admitted with cholecystitis and possible choledocholithiasis. MRCP neg, but tbili up and lfts elevated still. GI consulted, recommended transfer if felt needed eus/ercp. Discussed with medicine, possible transfer, however if repeat labs tomorrow and if downtrending proceed with surgery Discussed w/ pt poss. transfer - as she feels well at this time and pain free, hemodynamically stable and afebrile - pt agrees to be monitored here and be npo after MN for poss. surgery. Will initiate transfer if her clinical status changes/ worsens. Continue to monitor Transaminitis T bili of 2.8, AST of 406, ALT of 197, alk phos of 148 MRCP noting no biliary ductal dilatation and no common bile duct calculi identified. Per surgery continue to trend, if still elevated in AM might need transfer for ERCP Per GI - hepatitis panel ordered Continue to monitor with AM labs Hyperglycemia Glucose levels elevated Current hgba1c 5.7%- will need outpt follow up Diet: clears, NPO after midnight DVT prophylaxis: SCDs in setting of need for surgery Dispo: Med/Surg Admission and Anticipated Discharge Date Admission Date: April 17, 2024 Subjective Pt seen in follow up of acute cholecystitis Initially concern for poss. choledocholithiasis but MRCP negative LFT still up and discussed w/ surg. Currently pt is sitting up in bed in NAD, feels well, comfortable and denies any abdominal pain, even on palpation Discussed poss. need for transfer but at this time agreed to hold off. She understands to be npo after MN and she will notify nurse/ me if there is any change in her clinical status Will repeat blood work/ LFTs tmrw Review of Systems Review of Systems: All systems reviewed & are unremarkable except as noted in Subjective Physical Exam Physical Exam: General: obese F in NAD, pleasant and conversive, on RA HEENT: NC/AT CV: RRR Resp: Breath sounds clear bilaterally, no increased effort of breathing. Abdomen: Soft, nontender , + bowel sounds , obese Neuro: awake, alert, oriented, answers appropriately, speech fluent, no facial asymmetry, moves extremities, cooperative and pleasant Extremities: No LE edema, moves extremities Skin: warm, dry Results & Data Results & Data Vital Signs (Past 12 Hours) Vital Signs Temp Pulse Resp BP Pulse Ox O2 Del Method 04/18/24 08:07 36.5 C 65 16 139/80 94 Room Air Laboratory Results 04/18/24 04/18/24 Range/Units 10:46 05:43 WBC 6.55 (4.8-10.8) K/ul RBC 4.48 (4.20-5.40) M/uL Hgb 13.3 (12.0-16.0) g/dl Hct 40.6 (37.0-47.0) % MCV 90.6 (80.0-100.0) fL MCH 29.7 (25.0-34.0) pg MCHC 32.8 (32.0-36.0) g/dL RDW Std Deviation 44.0 (36.4-46.3) fL RDW Coeff of Melva 13.3 (11.5-14.5) % Plt Count 237 (130-400) K/uL MPV 11.6 (9.4-12.4) fL Immature Gran % (Auto) 0.5 % Neut % (Auto) 64.7 % Lymph % (Auto) 22.9 % [place] % (Auto) 6.4 % Eos % (Auto) 4.9 % Baso % (Auto) 0.6 % Neut # (Auto) 4.24 (1.40-6.50) K/uL Lymph # (Auto) 1.50 (1.20-3.40) K/uL [place] # (Auto) 0.42 (0.11-0.59) K/uL Eos # (Auto) 0.32 (0.00-0.50) K/uL Baso # (Auto) 0.04 (0.00-0.20) K/uL Immature Gran # (Auto) 0.03 (0.01-0.20) K/uL Sodium 141 (136-145) mmol/L Potassium 4.0 (3.5-5.1) mmol/L Chloride 108 H (98-107) mmol/L Carbon Dioxide 28 (21-32) mmol/L Anion Gap 5 (3-11) BUN 7 (6-23) mg/dl Creatinine 0.68 (0.6-1.2) mg/dl Est Cr Clr Drug Dosing 108.8 ml/min Est GFR ( Amer) 111.8 ml/min Est GFR (Non-Af Amer) 96.4 ml/min BUN/Creatinine Ratio 10.3 (10-20) Glucose 111 H (70-99(Fasting)) mg/dl Estimat Average Glucose 117 mg/dl Hemoglobin A1c 5.7 H (4.5-5.6) % Calcium 8.2 L (8.6-10.3) mg/dl Phosphorus 3.3 (2.5-4.9) mg/dl Magnesium 2.0 (1.7-2.4) mg/dl Total Bilirubin 3.0 H (0.2-1.0) mg/dl AST 346 H (13-39) U/L ALT 303 H (7-52) U/L Alkaline Phosphatase 168 H (34-104) U/L Total Protein 5.9 L D (6.0-8.3) gm/dl Albumin 3.5 (3.4-5.0) gm/dl Globulin 2.4 L (2.5-4.0) gm/dl Albumin/Globulin Ratio 1.5 (0.9-2) Hepatitis A IgM Ab Pending Hep Bs Antigen Pending Hep Bs Ag Confirmation Pending Hep B Core IgM Ab Pending Hepatitis C Ab (EIA) Pending Medications Administered Current Inpatient Medications Hydromorphone HCl (Hydromorphone Inj 0.5 Mg/0.5 Ml Syr) 0.5 mg IV Q6H PRN PRN Reason: Mod-Sev Pain (Scale 4-10) Stop: 05/01/24 13:17 Ertapenem 1,000 mg/ Syringe 10 mls @ 2 mls/min IV Q24H [facility] Stop: 04/27/24 13:59 Last Admin: 04/18/24 13:22 Dose: 2 mls/min Lactated Ringer's (Lr) 1,000 mls @ 80 mls/hr IV .[id number] [facility] Stop: 05/17/24 13:17 Last Admin: 04/18/24 02:21 Dose: 80 mls/hr Acetaminophen (Ofirmev) 1,000 mg in 100 mls @ 400 mls/hr IV Q8H PRN PRN Reason: Mild Pain (Scale 1, 2, 3) Stop: 04/20/24 13:17 Last Infusion: 04/18/24 08:34 Dose: Infused Ondansetron HCl (Ondansetron Inj 2 Mg/Ml 2 Ml Vial) 4 mg IV Q6H PRN PRN Reason: Nausea And Vomiting Stop: 05/17/24 13:39 Last Admin: 04/17/24 16:41 Dose: 4 mg
[2024-04-19 07:41] LABS: Hematocrit (blood only) 39.6 % (37.0-47.0); Hemoglobin 13.1 g/dl (12.0-16.0); Mean Corpuscular Hemoglobin 29.9 pg (25.0-34.0); Mean Corpuscular Hgb Conc 33.1 g/dL (32.0-36.0); Mean Corpuscular Volume 90.4 fL (80.0-100.0); Mean Platelet Volume 11.4 fL (9.4-12.4); Platelet Count 238 K/uL (130-400); RDW Coefficient of Variation 13.2 % (11.5-14.5); RDW Standard Deviation 43.6 fL (36.4-46.3); Red Blood Count 4.38 M/uL (4.20-5.40); White Blood Count 6.94 K/ul (4.8-10.8)
--- NOTE | 2024-04-19 08:06 | Surgery Progress Note ---
Date of Service April 19, 2024 Assessment & Plan (1) Acute cholecystitis: Plan: Pt denies abd pain currently BP elevated otherwise VSS LFt downtrending T. Bili 1.0 (3.0), D. Bili 0.3 , AST 129(346), AST 209 (303), alkal phos 167 (168) Keep NPO , IV antbx Patient will be added on to the OR for a Laparoscopic Cholecystectomy with Dr. Carver today. (2) Elevated LFTs: Admission and Anticipated Discharge Date Admission Date: April 17, 2024 Supervising Physician Co-Signing Physician Notes I personally saw and evaluated patient with [facility] and agree with the assessment and plan. 59-year-old female with acute cholecystitis, downtrending LFTs Her LFTs are improved We will proceed with a laparoscopic cholecystectomy possible open, possible intraoperative cholangiogram today Consent was obtained, risks discussed including bleeding, infection, bile leak, ductal injury Subjective Pt denies abd pain currently no n/v Review of Systems Constitutional: no fever and no chills Gastrointestinal: no abdominal pain, no nausea and no vomiting Physical Exam Constitutional: well developed, cooperative and comfortable Gastrointestinal (Abdomen): Inspection/Auscultation: abdomen not distended Percussion/Palpation: abdomen soft; abdomen nontender Results & Data Vital Signs (Past 12 Hours) Vital Signs Temp Pulse Resp BP Pulse Ox O2 Del Method 04/19/24 07:48 98.1 F 80 16 188/84 H 95 Room Air 04/19/24 05:14 97.5 F L 81 20 174/91 H 96 Room Air PG Care Time/CCT Total # of Minutes Spent Total Time Spent with Patient: Total time spent is greater than 50% in coordination of care (as documented) at patient's floor/unit and/or counseling patient: Coding Level of Care Code 24915 SUB INP/OBS CARE 12/16MIN Diagnoses Acute cholecystitis K81.0 Elevated LFTs R79.89
[2024-04-19 08:13] LABS: Albumin Globulin Ratio 1.5 (0.9-2); Albumin Level 3.6 gm/dl (3.4-5.0); BUN Creatinine Ratio 8.5 (10-20); Bilirubin Direct 0.3 mg/dl (0-0.2); Calcium 8.2 mg/dl (8.6-10.3); Creatinine Clr Calc Pharmacy 104.2 ml/min; Est GFR (African American) 108.8 ml/min; Est GFR (Non-African American) 93.9 ml/min; Globulin 2.4 gm/dl (2.5-4.0); Magnesium 2.1 mg/dl (1.7-2.4); Potassium 4.2 mmol/L (3.5-5.1)
[2024-04-19] MEDS: hydrALAZINE HCL 20 MG/ML VIAL IV STA (08:18)
[2024-04-19] MEDS ORDERED: MIDAZOLAM HCL 1 MG/ML 2ML VIAL ONE (09:34)
[2024-04-19] MEDS ORDERED: PROPOFOL IV EMULSION 10 MG/ML 20 ML VIAL IV ONE (09:34)
[2024-04-19] MEDS ORDERED: DEXAMETHASONE SOD INJ 4 MG/ML VIAL ONE (09:34)
[2024-04-19] MEDS ORDERED: LIDOCAINE 2% 2 ML VIAL/AMP(20MG/ML) INFIL ONE (09:34)
[2024-04-19] MEDS ORDERED: fentaNYL citrate PF 100 MCG/2 ML VIAL ONE ×2 (09:34→10:13)
[2024-04-19] MEDS ORDERED: ONDANSETRON INJ 2 MG/ML 2 ML VIAL ONE (09:34)
[2024-04-19] MEDS ORDERED: DROPERIDOL 5 MG/2 ML VIAL ONE (09:34)
[2024-04-19] MEDS ORDERED: ROCURONIUM BROMIDE 10 MG/ML 5 ML VIAL IV ONE (09:34)
[2024-04-19] MEDS: LACTATED RINGER'S 1,000 ML IV SCH (09:41)
--- NOTE | 2024-04-19 09:42 | Anesthesiology Consultation ---
Date of Service April 19, 2024 Assessment & Plan Chart Review Chart Review: Acceptable Risk for Surgery and Patient NOT seen in Pre Admission Testing Consults Requested none ASA ASA3 Proposed Anesthesia Anesthesia Type: General Risk / Benefits Reviewed With: PT / POA / Parent / Guardian, Accepts Plan and Informed Consent Obtained History Surgery Operation Date: 04/18/24 10:55 Proposed Procedures p Robotic Laparoscopic Cholecystectomy - Deangelo Saenz DO, FACS Operation Date: 04/19/24 07:50 Proposed Procedures p Laparoscopic Cholecystectomy, Possible Open - Jagdish Carver DO Height/Weight Height: 5 ft 4 in Weight: 109.1 kg Allergies Allergy/AdvReac Type Severity Reaction Status Date / Time Penicillins Allergy Unknown Unverified 12/27/09 04:41 Sulfa (Sulfonamide Allergy Unknown Unverified 12/27/09 04:41 Antibiotics) sulfamethoxazole Allergy Unknown Unverified 12/27/09 04:41 trimethoprim Allergy Unknown Unverified 12/27/09 04:41 PCN, BACTRIM Allergy Unknown Uncoded 01/15/05 07:37 Medications Home Medications Medication Instructions Recorded Confirmed Last Taken No Known Home Medications 04/17/24 04/17/24 Unknown Active Medications Generic Name Dose Route Start Last Admin Trade Name Freq PRN Reason Stop Dose Admin Ertapenem 1,000 mg/ Syringe 10 mls @ 2 mls/min 04/17/24 14:00 04/18/24 13:22 IV 04/27/24 13:59 2 mls/min Q24H JUANA Administration Lactated Ringer's 1,000 mls @ 80 mls/hr 04/17/24 13:18 04/19/24 02:28 Lr IV 05/17/24 13:17 80 mls/hr .[id number] JUANA Administration Acetaminophen 1,000 mg in 100 mls @ 400 mls/hr 04/17/24 13:18 04/19/24 05:55 Ofirmev IV 04/20/24 13:17 Infused Q8H PRN Infusion Mild Pain (Scale 1, 2, 3) Lactated Ringer's 1,000 mls @ 15 mls/hr 04/19/24 09:45 04/19/24 09:41 Lr IV 05/19/24 09:44 15 mls/hr .Q24H JUANA Administration Ondansetron HCl 4 mg 04/17/24 13:40 04/17/24 16:41 Ondansetron Inj 2 Mg/Ml 2 Ml Vial IV 05/17/24 13:39 4 mg Q6H PRN Administration Nausea And Vomiting NPO Date Last Intake of Fluids: 04/18/24 Time Last Intake of Fluids: 20:00 Date Last Intake of Solids: 04/18/24 Time Last Intake of Solids: 20:00 Past Anesthesia History No Hx of Anesthesia Complications and No Family Hx of Anesthesia Complications Social History Smoking Status: Former smoker Do You Dip or Chew Tobacco: No Hx Alcohol Use: Yes Alcohol type: beer alcohol intake frequency: 0-2 drinks per day Hx Substance Use: No Review of Systems ROS Unobtainable: All systems reviewed & are unremarkable except as noted in HPI & below Physical Exam Vital Signs Last Vital Signs Temp 36.9 C 04/19/24 09:33 Pulse 88 04/19/24 09:33 Resp 20 04/19/24 09:33 BP 168/80 H 04/19/24 09:33 Pulse Ox 96 04/19/24 09:33 O2 Del Method Room Air 04/19/24 09:33 ENMT Mouth: no TMJ abnormality Thyromental Distance: > or= 3.5 Finger Breadths Mallampati Class: II Neck normal visual inspection and trachea midline; neck extension not limited Respiratory normal respiratory effort Auscultation: lungs clear to auscultation bilaterally Cardiovascular Rate/Rhythm: regular rate and regular rhythm Heart Sounds: no murmur Musculoskeletal Spine: normal cervical ROM Extremities: full ROM of extremities Neurologic moves all extremities Psychiatric Orientation: alert and oriented x 3 Testing Laboratory Results 04/19/24 06:52 04/19/24 06:52 PT 10.8 Seconds (9.0-12.0) 04/17/24 06:13 INR 1.0 (0.9-1.1) 04/17/24 06:13 APTT 24 Seconds (21-31) 04/17/24 06:13 Hemoglobin A1c 5.7 % (4.5-5.6) H 04/18/24 05:43 Urine Color Dark Yellow 04/17/24 07:41 Urine Appearance Clear (Clear) 04/17/24 07:41 Urine pH 7.5 (4.5-7.5) 04/17/24 07:41 Ur Specific Comfort 1.023 (1.000-1.030) 04/17/24 07:41 Urine Protein Trace (Negative) H 04/17/24 07:41 Urine Glucose (UA) Negative (Negative) 04/17/24 07:41 Urine Ketones Negative (Negative) 04/17/24 07:41 Urine Nitrite Negative (Negative) 04/17/24 07:41 Ur Leukocyte Esterase Negative (Negative) 04/17/24 07:41 Urine WBC (Auto) 0-5 /hpf (0-5) 04/17/24 07:41 Urine RBC (Auto) 0-2 /hpf (0-2) 04/17/24 07:41 U Hyaline Cast (Auto) 0-2 /lpf (0-2) 04/17/24 07:41 U Epithel Cells (Auto) 0-2 /hpf (0-2) 04/17/24 07:41 Urine Bacteria (Auto) None Seen (None Seen) 04/17/24 07:41 Electrocardiogram Date: 04/19/24 normal sinus rhythm
[2024-04-19] MEDS ORDERED: ATROPINE SULFATE 0.1 MG/ML 10ML SYR IV PRN (09:43)
[2024-04-19] MEDS ORDERED: ONDANSETRON INJ 2 MG/ML 2 ML VIAL IV PRN (09:43)
[2024-04-19] MEDS ORDERED: fentaNYL citrate PF 100 MCG/2 ML VIAL IV PRN (09:43)
[2024-04-19] MEDS ORDERED: ePHEDrine sulfate 50 MG/ML AMP IV PRN (09:43)
[2024-04-19] MEDS ORDERED: KETAMINE HCL 10MG/ML SYR ONE (09:58)
[2024-04-19] MEDS ORDERED: HYDROmorphone INJ 1 MG/ML SYRINGE ONE (10:19)
[2024-04-19] MEDS ORDERED: DexMEDEtomidine HCL IV 100 MCG/ML VIAL IV ONE (10:19)
[2024-04-19] MEDS ORDERED: SUGAMMADEX SODIUM 200 MG/2 ML VIAL IV ONE (10:45)
[2024-04-19] MEDS ORDERED: NEOSTIGMINE METHYLSULFATE 1 MG/ML 10ML VIAL ONE (10:45)
[2024-04-19] MEDS: BUPIVACAINE/EPINEPHRINE 0.25% 1:200,000 30 ML VIAL ONE (10:50)
--- NOTE | 2024-04-19 10:56 | Post Operative Brief Note ---
PG Immediate Post Op with CF Date of Surgery April 19, 2024 Pre & Post Diagnosis Operation Date: 04/19/24 07:50 Pre-Op Diagnosis: Acute cholecystitis Post-Op Diagnosis: Acute cholecystitis I identified the patient and participated in the time-out.: Yes Procedure Operation Date: 04/19/24 07:50 Actual Procedures p Laparoscopic Cholecystectomy(Not Applicable) - Jagdish Carver DO Surgeon Jagdish Carver DO Enrolled Agent Zulma Jorge PA-C Estimated Blood Loss 5 Findings See Below Dilated edematous gallbladder Specimens Specimen Description: A. Gallbladder and contents Anesthesia Type General Complications none Disposition Disposition: Recovery Room
--- NOTE | 2024-04-19 11:00 | Operative Report ---
PG Post Operative Report Pre & Post Diagnosis Operation Date: 04/19/24 07:50 Pre-Op Diagnosis: Acute cholecystitis Post-Op Diagnosis: Acute cholecystitis I identified the patient and participated in the time-out.: Yes Procedure Operation Date: 04/19/24 07:50 Actual Procedures p Laparoscopic Cholecystectomy(Not Applicable) - Jagdish Carver DO Surgeon Jagdish Carver DO Team Driver Zulma Jorge PA-C Estimated Blood Loss 5 Findings See Below Dilated, edematous gallbladder Fluids see anesthesia record Specimens Gallbladder to pathology Drains None Anesthesia Type General Complications none Disposition Disposition: Recovery Room Indications 59 yo female with acute cholecystitits Description of Procedure The patient was brought to the operating room and placed in the supine position with both arms extended. At this time she underwent general endotracheal anesthesia without any problems. She was given appropriate pre-operative antibiotics. Her abdomen prepped and draped in the usual sterile fashion. A timeout was called, the procedure was verified as Laparoscopic cholecystectomy, possible open, possible intra-operative cholangiogram. Surgical, nursing and anesthesia teams agreed and the procedure was begun. After injection of 0.25% Marcaine with epinephrine, a supraumbilical vertical incision was made and carried down to the fascia using S-retractors. The abdominal wall was then elevated with towel clamps and abdomen entered using the Veress needle confirming position using the saline drop test. Pneumoperitoneum was established. 5mm trocar was placed. Laparoscope was introduced. No injury from entry into the abdomen was visualized after inspection of the abdomen. Three further ports were placed under direct visualization. One 11mm in the subxiphoid region and two 5mm in the RUQ. At this time the abdomen was inspected and the gallbladder identified. The gallbladder itself was dilated and edematous consistent with acute cholecystitis. The gallbladder fundus was grasped and retracted cephalad. The gallbladder infundibulum was then grasped and retracted laterally. The cystic duct and cystic artery were then identified and skeletonized. The critical view of safety was obtained. They were both then clipped twice proximally and once distally and then divided using scissors. The gallbladder was then taken off of the liver bed using electrocautery and placed in an endocatch bag and removed from the subxiphoid port. The liver bed was then inspected and no bile leak or bleeding was evident. The subxiphoid port was then closed using 0-Vicryl using the suture passer. The trocars were then removed under direct visualization and no bleeding was present. Abdomen was desufflated. The skin was then closed using 4-0 Monocryl in a subcuticular fashion. Surgical glue was applied. Needle and sponge counts were correct x 2. At this time the patient was awoken from anesthesia and extubated having remained stable throughout the entire case. The patient was then transported to PACU in stable condition. The physician produce assistant was present and scrubbed for the entire procedure. She was essential in positioning, prepping and draping the patient, retraction and exposure, driving the laparoscope, closure of the incisions and placement of the dressings. I attest to the content of the Intraoperative Record and any orders documented therein. Any exceptions are noted below.
--- NOTE | 2024-04-19 11:38 | Electrocardiogram Report ---
Test Reason : Blood Pressure : / mmHG Vent. Rate : 074 BPM Atrial Rate : 074 BPM P-R Int : 148 ms QRS Dur : 080 ms QT Int : 400 ms P-R-T Axes : 070 065 043 degrees QTc Int : 444 ms Normal sinus rhythm Normal ECG When compared with ECG of 17-APR-2024 06:07, Vent. rate has decreased BY 37 BPM Confirmed by Jose Craig ([id number]) on 04/19/2024 11:38:16 AM Referred By: REFERRED SELF Confirmed By:Jose Craig
[2024-04-19] MEDS ORDERED: MoRPHine SULFATE 2 MG/ML CARP IV PRN (11:58)
[2024-04-19] MEDS ORDERED: MoRPHine SULFATE 4 MG/ML 1 ML CARP\\VIAL IV PRN (11:58)
--- NOTE | 2024-04-19 12:07 | Anesthesiology Progress Note ---
Date of Service April 19, 2024 Anesthesia Post Procedure Vital Signs Vital Signs: Temp Pulse Pulse Resp BP Pulse Ox O2 Del Method 04/19/24 11:50 67 16 164/81 H 95 Nasal Cannula 04/19/24 11:40 36.8 C 85 19 161/79 H 94 Nasal Cannula 04/19/24 11:30 75 15 152/85 H 93 Nasal Cannula 04/19/24 11:20 80 12 155/89 H 94 Oxymask 04/19/24 11:11 36.7 C 84 12 172/87 H 97 Oxymask 04/19/24 09:33 36.9 C 88 20 168/80 H 96 Room Air 04/19/24 08:56 169/88 H 04/19/24 07:48 36.7 C 80 16 188/84 H 95 Room Air 04/19/24 05:14 36.4 C L 81 20 174/91 H 96 Room Air 04/18/24 19:50 36.6 C 65 18 169/85 H 95 Room Air 04/18/24 15:12 36.6 C 65 17 143/79 H 96 Room Air O2 Flow Rate 04/19/24 11:50 2 04/19/24 11:40 2 04/19/24 11:30 3 04/19/24 11:20 9 04/19/24 11:11 9 04/19/24 09:33 04/19/24 08:56 04/19/24 07:48 04/19/24 05:14 04/18/24 19:50 04/18/24 15:12 Pain Intensity Anterior Chest: Pain Intensity: 10 Head: Pain Intensity: 5 Transfer of Care Handoff Completed per policy Notes Mental Status: alert / awake / arousable Patient Amnestic to Procedure: Yes Nausea / Vomiting: adequately controlled Pain: adequately controlled Airway Patency, RR, SpO2: stable & adequate BP & HR: stable & adequate Hydration State: stable & adequate Anesthetic Complications: no major complications apparent
[2024-04-19] MEDS: oxyCODONE HCL IR 5 MG TAB (IMMEDIATE RELEASE) PO PRN (12:11)
[2024-04-19 13:22] LABS: HBSAG NON-REACTIVE (NON-REACTIVE); Hepatitis A Antibody IgM NON-REACTIVE (NON-REACTIVE); Hepatitis B Core Antibody IgM NON-REACTIVE (NON-REACTIVE)
[2024-04-19] MEDS ORDERED: hydrALAZINE HCL 20 MG/ML VIAL IV PRN (17:33)
--- NOTE | 2024-04-19 17:34 | Hospitalist Progress Note ---
Date of Service April 19, 2024 Assessment & Plan (1) Acute cholecystitis: (2) Elevated LFTs: Plan Pt is a 59yoF with no significant PMHx presenting with epigastric pain radiating to her back. Acute Cholecystitis- MRCP negative for choledocholithiasis, CT reviewed. LFTs improving - Seen by GI and surgery - S/p lap enmanuel today, doing well postop. Clear liquid diet, advance as tolerated, Pain control Transaminitis- improving, recheck in am Elevated BP- prn HLZ DVT prophylaxis: SCDs, ambulation Dispo:Anticipate discharge tomorrow Updated partner at bedside Time spent- approx 35 mins Admission and Anticipated Discharge Date Admission Date: April 17, 2024 Subjective Patient was seen and examined at bedside after OR. She feels better. Pain is con trolled. She already took 4 laps. Voiding without issues. Waiting for dinner. No N/V, CP, SOB, fever or chills. Partner at bedside. Review of Systems Review of Systems: All systems reviewed & are unremarkable except as noted in Subjective Physical Exam Physical Exam: General: Lying comfortably in bed, not in distress, on room air HEENT: EOMI, JOANNA, MMM Chest: Clear breath sounds bilaterally, no wheezes or crackles CVS: Regular rate and rhythm, normal heart sounds, no murmur Abdomen: Soft, expected mild incisional tenderness, not distended, normal bowel sounds Neuro: Awake, alert, oriented, conversing well, non focal Extremities: No cyanosis, clubbing or edema Results & Data Results & Data Vital Signs (Past 12 Hours) Vital Signs Temp Pulse Pulse Resp BP Pulse Ox O2 Del Method 04/19/24 15:00 36.6 C 79 16 145/81 H 95 Room Air 04/19/24 14:00 36.7 C 69 18 143/79 H 97 Nasal Cannula 04/19/24 12:59 36.5 C 79 16 155/84 H 94 Nasal Cannula 04/19/24 12:27 36.3 C L 68 16 144/87 H 96 Nasal Cannula 04/19/24 12:00 36.5 C 80 14 160/84 H 94 Nasal Cannula 04/19/24 11:50 67 16 164/81 H 95 Nasal Cannula 04/19/24 11:40 36.8 C 85 19 161/79 H 94 Nasal Cannula 04/19/24 11:30 75 15 152/85 H 93 Nasal Cannula 04/19/24 11:20 80 12 155/89 H 94 Oxymask 04/19/24 11:11 36.7 C 84 12 172/87 H 97 Oxymask 04/19/24 09:33 36.9 C 88 20 168/80 H 96 Room Air 04/19/24 08:56 169/88 H 04/19/24 07:48 36.7 C 80 16 188/84 H 95 Room Air O2 Flow Rate 04/19/24 15:00 04/19/24 14:00 2 04/19/24 12:59 2 04/19/24 12:27 2 04/19/24 12:00 4 04/19/24 11:50 2 04/19/24 11:40 2 04/19/24 11:30 3 04/19/24 11:20 9 04/19/24 11:11 9 04/19/24 09:33 04/19/24 08:56 04/19/24 07:48 Laboratory Results Short CBC 04/19/24 Range/Units 06:52 WBC 6.94 (4.8-10.8) K/ul Hgb 13.1 (12.0-16.0) g/dl Hct 39.6 (37.0-47.0) % Plt Count 238 (130-400) K/uL BMP 04/19/24 06:52 Sodium 142 Potassium 4.2 Chloride 109 H Carbon Dioxide 28 BUN 6 Creatinine 0.71 Glucose 110 H Calcium 8.2 L Liver Function 04/19/24 Range/Units 06:52 Total Bilirubin 1.0 D (0.2-1.0) mg/dl Direct Bilirubin 0.3 H (0-0.2) mg/dl AST 129 H (13-39) U/L ALT 209 H (7-52) U/L Alkaline Phosphatase 167 H (34-104) U/L Albumin 3.6 (3.4-5.0) gm/dl
[2024-04-20 06:35] LABS: Albumin Globulin Ratio 1.4 (0.9-2); Albumin Level 3.4 gm/dl (3.4-5.0); Bilirubin,Total 0.8 mg/dl (0.2-1.0); Creatinine Clr Calc Pharmacy 105.7 ml/min; Est GFR (African American) 110.7 ml/min; Est GFR (Non-African American) 95.5 ml/min; Globulin 2.4 gm/dl (2.5-4.0); Magnesium 1.9 mg/dl (1.7-2.4); Phosphorus 3.2 mg/dl (2.5-4.9); Potassium 3.7 mmol/L (3.5-5.1); Total Protein 5.8 gm/dl (6.0-8.3)
[2024-04-20 06:37] LABS: Basophils # (auto) 0.04 K/uL (0.00-0.20); Basophils % (auto) 0.3 %; Eosinophils # (auto) 0.24 K/uL (0.00-0.50); Eosinophils % (auto) 1.9 %; Hematocrit (blood only) 39.3 % (37.0-47.0); Hemoglobin 12.6 g/dl (12.0-16.0); Immature Granulocytes # (auto) 0.09 K/uL (0.01-0.20); Immature Granulocytes % (auto) 0.7 %; Lymphocytes # (auto) 2.25 K/uL (1.20-3.40); Lymphocytes % (auto) 17.6 %; Mean Corpuscular Hemoglobin 29.4 pg (25.0-34.0); Mean Corpuscular Hgb Conc 32.1 g/dL (32.0-36.0); Mean Corpuscular Volume 91.6 fL (80.0-100.0); Mean Platelet Volume 11.4 fL (9.4-12.4); Monocytes # (auto) 0.87 K/uL (0.11-0.59); Monocytes % (auto) 6.8 %; Neutrophils # (auto) 9.31 K/uL (1.40-6.50); Neutrophils % (auto) 72.7 %; Platelet Count 245 K/uL (130-400); RDW Coefficient of Variation 13.6 % (11.5-14.5); Red Blood Count 4.29 M/uL (4.20-5.40)
[2024-04-20] MEDS: oxyCODONE HCL IR 5 MG TAB (IMMEDIATE RELEASE) PO PRN (07:00)
--- NOTE | 2024-04-20 08:48 | Surgery Progress Note ---
Date of Service April 20, 2024 Assessment & Plan (1) Acute cholecystitis: Plan: Doing well POD#1 lap enmanuel LFT's continue to decrease If she tolerates regular diet for lunch she can be discharged from a surgical standpoint F/u with me in 2 weeks No need for ABX upon discharge Admission and Anticipated Discharge Date Admission Date: April 17, 2024 Subjective Pt seen and examined. Pain controlled. No N/V. Tolerating clears. Afebrile. Ambulating and voiding. Physical Exam Constitutional: WD/WN, vitals as above Gastrointestinal (Abdomen): Dressings c/d/i Results & Data Vital Signs (Past 12 Hours) Vital Signs Temp Pulse Resp BP Pulse Ox O2 Del Method 04/20/24 08:19 158/83 H 04/20/24 07:21 36.4 C L 75 17 185/87 H 93 Room Air 04/20/24 03:13 36.6 C 69 14 151/80 H 95 Room Air 04/19/24 23:04 36.7 C 76 14 136/81 94 Room Air PG Care Time/CCT Total # of Minutes Spent Total Time Spent with Patient: Total time spent is greater than 50% in coordination of care (as documented) at patient's floor/unit and/or counseling patient: Coding Level of Care Code 42580 Post Operative Follow-Up Diagnoses Acute cholecystitis K81.0
[2024-04-20] MEDS: amLODIPine BESYLATE 5 MG TAB PO SCH (09:37)
[2024-04-20] MEDS: IBUPROFEN 200 MG TAB PO PRN (11:37)
--- NOTE | 2024-04-20 13:35 | Discharge Summary ---
Date of Service April 20, 2024 Admission HPI Per Admitting Provider Pt is a 59yoF with no significant PMHx presenting with epigastric pain radiating to her back. She states the pain started about 3pm yesterday and was intermittent. Then continued to become more persistent and felt like it was in her chest area, so she became concerned that she might be having a heart attack. Presented this morning when the pain became unbearable. Had some nausea but no vomiting. Had not been able to eat. At the time of this interview and exam stated that the pain was resolved and she felt like she could eat. Denied nausea at that time. Denied fevers, chills or night sweats. Notes a family hx of cardiac disease but no personal Hx. Denies a Hx of CVA, CKD, ID or CHF. States her only previous surgery was in her wrist. Admission Exam Per Admitting Provider General: Alert, oriented. No acute distress Skin: No noted rashes or bruises Psych: Appropriate mood and affect Neuro: No gross deficits HEENT: NC/AT Chest: Nontender to palpation. CV: RRR Resp: Breath sounds clear bilaterally, no increased effort of breathing. Abdomen: Soft, tender to deep palpation only at the time of my exam Extremities: No edema in lower extremities bilaterally. Principal Diagnosis Acute cholecystitis s/p lap cholecystectomy Discharge Exam General: Lying comfortably in bed, not in distress, on room air HEENT: EOMI, JOANNA, MMM Chest: Clear breath sounds bilaterally, no wheezes or crackles CVS: Regular rate and rhythm, normal heart sounds, no murmur Abdomen: Soft, expected mild incisional tenderness, not distended, normal bowel sounds Neuro: Awake, alert, oriented, conversing well, non focal Extremities: No cyanosis, clubbing or edema Discharge Data Allergies Allergy/AdvReac Type Severity Reaction Status Date / Time Penicillins Allergy Unknown Unverified 12/27/09 04:41 Sulfa (Sulfonamide Allergy Unknown Unverified 12/27/09 04:41 Antibiotics) sulfamethoxazole Allergy Unknown Unverified 12/27/09 04:41 trimethoprim Allergy Unknown Unverified 12/27/09 04:41 PCN, BACTRIM Allergy Unknown Uncoded 01/15/05 07:37 Consultations 04/17/24 11:16 ED Decision to Admit Stat 04/18/24 07:42 Consult Gastroenterology Routine Procedures Performed Operation Date: 04/19/24 07:50 Actual Procedures p Laparoscopic Cholecystectomy(Not Applicable) - Jagdish Carver, Ordered Studies 04/17/24 07:19 CT abd pelvis IV con only Stat 04/17/24 08:28 MR MRCP Urgent Laboratory Results WBC 12.80 K/ul (4.8-10.8) H 04/20/24 05:41 RBC 4.29 M/uL (4.20-5.40) 04/20/24 05:41 Hgb 12.6 g/dl (12.0-16.0) 04/20/24 05:41 Hct 39.3 % (37.0-47.0) 04/20/24 05:41 MCV 91.6 fL (80.0-100.0) 04/20/24 05:41 MCH 29.4 pg (25.0-34.0) 04/20/24 05:41 MCHC 32.1 g/dL (32.0-36.0) 04/20/24 05:41 RDW Std Deviation 46.0 fL (36.4-46.3) 04/20/24 05:41 RDW Coeff of Melva 13.6 % (11.5-14.5) 04/20/24 05:41 Plt Count 245 K/uL (130-400) 04/20/24 05:41 MPV 11.4 fL (9.4-12.4) 04/20/24 05:41 Immature Gran % (Auto) 0.7 % 04/20/24 05:41 Neut % (Auto) 72.7 % 04/20/24 05:41 Lymph % (Auto) 17.6 % 04/20/24 05:41 Beckham % (Auto) 6.8 % 04/20/24 05:41 Eos % (Auto) 1.9 % 04/20/24 05:41 Baso % (Auto) 0.3 % 04/20/24 05:41 Neut # (Auto) 9.31 K/uL (1.40-6.50) H 04/20/24 05:41 Lymph # (Auto) 2.25 K/uL (1.20-3.40) 04/20/24 05:41 Beckham # (Auto) 0.87 K/uL (0.11-0.59) H 04/20/24 05:41 Eos # (Auto) 0.24 K/uL (0.00-0.50) 04/20/24 05:41 Baso # (Auto) 0.04 K/uL (0.00-0.20) 04/20/24 05:41 Immature Gran # (Auto) 0.09 K/uL (0.01-0.20) 04/20/24 05:41 PT 10.8 Seconds (9.0-12.0) 04/17/24 06:13 INR 1.0 (0.9-1.1) 04/17/24 06:13 APTT 24 Seconds (21-31) 04/17/24 06:13 PTT Ratio 0.9 04/17/24 06:13 D-Dimer 450 ug/L FEU (0-500) 04/17/24 06:13 Sodium 138 mmol/L (136-145) 04/20/24 05:41 Potassium 3.7 mmol/L (3.5-5.1) 04/20/24 05:41 Chloride 105 mmol/L (98-107) 04/20/24 05:41 Carbon Dioxide 27 mmol/L (21-32) 04/20/24 05:41 Anion Gap 6 (3-11) 04/20/24 05:41 BUN 7 mg/dl (6-23) 04/20/24 05:41 Creatinine 0.70 mg/dl (0.6-1.2) 04/20/24 05:41 Est Cr Clr Drug Dosing 105.7 ml/min 04/20/24 05:41 Est GFR ( Amer) 110.7 ml/min 04/20/24 05:41 Est GFR (Non-Af Amer) 95.5 ml/min 04/20/24 05:41 BUN/Creatinine Ratio 10.0 (10-20) 04/20/24 05:41 Glucose 99 mg/dl (70-99(Fasting)) 04/20/24 05:41 Estimat Average Glucose 117 mg/dl 04/18/24 05:43 Hemoglobin A1c 5.7 % (4.5-5.6) H 04/18/24 05:43 Calcium 8.0 mg/dl (8.6-10.3) L 04/20/24 05:41 Phosphorus 3.2 mg/dl (2.5-4.9) 04/20/24 05:41 Magnesium 1.9 mg/dl (1.7-2.4) 04/20/24 05:41 Total Bilirubin 0.8 mg/dl (0.2-1.0) 04/20/24 05:41 Direct Bilirubin 0.3 mg/dl (0-0.2) H 04/19/24 06:52 AST 74 U/L (13-39) H 04/20/24 05:41 ALT 150 U/L (7-52) H 04/20/24 05:41 Alkaline Phosphatase 139 U/L (34-104) H 04/20/24 05:41 Troponin I High Sens 3.7 pg/ml (0-14) 04/19/24 08:11 Total Protein 5.8 gm/dl (6.0-8.3) L 04/20/24 05:41 Albumin 3.4 gm/dl (3.4-5.0) 04/20/24 05:41 Globulin 2.4 gm/dl (2.5-4.0) L 04/20/24 05:41 Albumin/Globulin Ratio 1.4 (0.9-2) 04/20/24 05:41 Lipase 30 U/L (11-82) 04/17/24 06:13 Urine Color Dark Yellow 04/17/24 07:41 Urine Appearance Clear (Clear) 04/17/24 07:41 Urine pH 7.5 (4.5-7.5) 04/17/24 07:41 Ur Specific [place] 1.023 (1.000-1.030) 04/17/24 07:41 Urine Protein Trace (Negative) H 04/17/24 07:41 Urine Glucose (UA) Negative (Negative) 04/17/24 07:41 Urine Ketones Negative (Negative) 04/17/24 07:41 Urine Blood Negative (Negative) 04/17/24 07:41 Urine Nitrite Negative (Negative) 04/17/24 07:41 Urine Bilirubin Negative (Negative) 04/17/24 07:41 Urine Urobilinogen Negative (Negative) 04/17/24 07:41 Ur Leukocyte Esterase Negative (Negative) 04/17/24 07:41 Urine WBC (Auto) 0-5 /hpf (0-5) 04/17/24 07:41 Urine RBC (Auto) 0-2 /hpf (0-2) 04/17/24 07:41 U Hyaline Cast (Auto) 0-2 /lpf (0-2) 04/17/24 07:41 U Epithel Cells (Auto) 0-2 /hpf (0-2) 04/17/24 07:41 Urine Bacteria (Auto) None Seen (None Seen) 04/17/24 07:41 Hepatitis A IgM Ab NON-REACTIVE (NON-REACTIVE) 04/18/24 10:46 Hep Bs Antigen NON-REACTIVE (NON-REACTIVE) 04/18/24 10:46 Hep Bs Ag Confirmation TNP 04/18/24 10:46 Hep B Core IgM Ab NON-REACTIVE (NON-REACTIVE) 04/18/24 10:46 Hepatitis C Ab (EIA) NON-REACTIVE (NON-REACTIVE) 04/18/24 10:46 Impressions Chest X-Ray 04/17/24 06:04 XR chest 1V portable CLINICAL HISTORY: Chest pain, nonspecific COMPARISON STUDY: No previous studies for comparison. FINDINGS: Lung volumes are normal. Lungs are clear. There is no pneumothorax or pleural effusion. Cardiac size is normal. Mediastinal contours are normal. There is no evidence for pulmonary edema. IMPRESSION: No acute cardiopulmonary findings. ACT 112: Negative or not required by law. Electronically signed by: Zak Barfield M.D. 04/17/2024 7:49 AM Abdomen/Pelvis CT 04/17/24 07:19 CT OF THE ABDOMEN AND PELVIS WITH CONTRAST CLINICAL HISTORY: RUQ, epigastric pain, ?enmanuel COMPARISON STUDY: None. TECHNIQUE: Following IV administration of 92 mL of Optiray, axial images of the abdomen and pelvis were obtained from the lung bases to the proximal femurs. Images were reviewed in the axial, sagittal, and coronal planes. IV contrast was administered without complication. Automated exposure control was utilized for the study. A dose lowering technique was utilized adhering to the principles of ALARA. CT DOSE: 1366.34 mGy.cm FINDINGS: Lung bases are unremarkable. No pneumatosis, free air or portal venous gas is present. There is hepatic steatosis. There are no hepatic lesions. There is no biliary or pancreatic ductal dilatation. A gallstone within the gallbladder is present. The gallbladder is mildly distended. There is mild gallbladder wall thickening. Trace stranding within the ponce hepatis is present. Spleen, adrenal glands, kidneys and pancreas are unremarkable. There is no hydronephrosis. The appendix is normal. Caliber and wall thickness of small and large bowel are normal. There is sigmoid diverticulosis without evidence for acute diverticulitis. Major vasculature is patent. IMPRESSION: 1. Cholelithiasis with mild gallbladder distention, gallbladder wall thickening and trace stranding within the ponce hepatis. Acute cholecystitis cannot be excluded. 2. Normal appendix. No bowel obstruction. No bowel wall thickening. 3. Sigmoid diverticulosis without evidence for acute diverticulitis. 4. Hepatic steatosis. ACT 112: Negative or not required by law. Electronically signed by: Zak Barfield M.D. 04/17/2024 8:00 AM Cholangiopancreatography MRI 04/17/24 08:28 MRCP CLINICAL HISTORY: Abdominal pain and nausea. TECHNIQUE: Utilizing a 1.5 Leonela magnet and dedicated coil, multiplanar, mul tiecho imaging of the upper abdomen was performed utilizing heavily T2 weighted pulsing sequences without IV contrast. COMPARISON STUDY: CT of the abdomen and pelvis performed earlier today. FINDINGS: No intra or extrahepatic biliary ductal dilatation is present. The common bile duct measures 5 m in caliber. No common bile duct calculi are identified. No hepatic lesions are identified on unenhanced exam. 2.1 cm gallstone within the gallbladder is present. There is mild gallbladder wall thickening. Slight thickening of the gallbladder fundus with small T2 hyperintense foci may reflect adenomyomatosis. There is no pancreatic ductal dilatation. Spleen, adrenal glands, kidneys and pancreas are unremarkable on unenhanced exam. Caliber and wall thickness of visualized small and large bowel are normal. There are no fluid collections within the abdomen. IMPRESSION: 1. No biliary ductal dilatation. No common bile duct calculi identified. 2. Cholelithiasis with mild gallbladder wall thickening. The findings could reflect chronic or acute cholecystitis. Nuclear medicine hepatobiliary scan could be obtained as indicated. ACT 112: Negative or not required by law. Electronically signed by: Zak Barfield M.D. 04/17/2024 11:08 AM Hospital Course (1) Acute cholecystitis: (2) Elevated LFTs: Plan 59 year old patient with no significant past medical history who presented with epigastric pain radiating to her back. Found to have acute cholecystitis with elevated LFTs. MRCP was negative for choledocholithiasis. Seen by GI and surgery. Underwent lap cholecystectomy yesterday and post operative period was unremarkable. Pain is controlled. Tolerating diet without issues. Ambulating independently. Cleared by surgery for discharge home and no antibiotics were recommended as source control achieved. Afebrile, hemodynamically stable throughout although hypertensive for which the patient was started on amlodipine and will follow up PCP as OP for further management. Work excuse was provided upon request. Discharge instructions per surgery and OP follow up. LFTs improving and will need to be followed up with PCP with repeat labs. Comfortable and stable for discharge. Total Time Total Time Spent Total Time Spent (In Minutes): 33 Discharge Plan Discharge Items Patient Disposition: Home - Self-Care Reason For Visit: CHEST PAIN, PAIN ACROSS BACK Discharge Diagnosis: Acute cholecystitis s/p laparoscopic cholecystectomy Activity: Per Instructions section Lifting: No more than 10 pounds Bathing Comment: may shower; no soaking in tubs/pools x 2 weeks Driving/Machine Use: no driving while on narcotics for pain Non-emergency contact: Surgeon Call non-emergency contact if: you have any medication questions, your symptoms worsen, your pain is worsening, you have a fever, your temperature is above 101.5, your wound has increased redness, your wound has increased drainage and your wound pain has increased Follow-up/Referrals: Jagdish Carver DO [Physician] - 05/03/24 11:15 am ( follow up in clinic within 2 weeks) Marisol Moreno PA-C [Primary Care Provider] - 04/26/24 11:00 am (Date & Time 04/26/2024 11:00 AM Provider Bobby Cannon MD [facility] ) Diet: Regular Addtl Attending Provider Instructions: You may remove your outer surgical dressings on 04/22. You will have small white bandages on underneath that are over your incisions. You may shower with these on. They will tend to fall off on their own within 7-10 days. You may purchase Tylenol and/or Ibuprofen over the counter if needed for additional pain control over the next few days. Take per manufacturers instructions We have started you on amlodipine 1 tab daily for your blood pressure. Recommend buying a blood pressure machine and checking at home and follow up with family doctor for further management of your hypertension. Recommend repeat blood work with liver function testing in 7-10 days with the family doctor Pending Studies at Discharge: Yes Studies:: surgical pathology Stand-Alone Forms: My [facility], Work/School Release, Smoking Cessation Medications and DC Order Prescriptions: New amlodipine [Norvasc] 5 mg Tablet 5 mg PO QAM Qty: 30 0RF Discharge Orders: Discharge Order (Routine); Ordered 04/20/24 Ordered By: Jorge March/Other Patient Handouts: Cholecystectomy Admission Data Admit Date/Time: 04/17/24 11:21 Attending Provider: Jorge Saleem Admit Provider: Jovita Landeros Primary Care Provider: Marisol Moreno Other Providers: Jovita Landeros; Edison Moreland; Huseyin Brownlee; Sue Rae; Alaina Pablo; Jovana Huitron; Nida Fleming; Elissa Comer; Khris Augustin; Julian Lam; Laura Whatley; Faisal Floyd; Margarito Arellano; Marilia Bee; Emilie Hou; Parul Arevalo; Joelle Garzon; Saira Ji; Gilmer Greenberg; Johnny Vilchis; Suzanne Wilkinson; Markell Gomez Jr Other Interventions: Discharge Summary Assessment (RN) Last Done: 04/20/24 10:35
== END 2024-04-20 14:10 | disposition home or self-care (01) ==
LOC: ED 06:00 → SUATTDRO 11:21 → 3N 11:21 → INTOOBSV 11:21 → 3N 13:00